=== PATIENT | female | born 1980 | race Caucasian/White ===

== ENCOUNTER 2016-06-22 16:03 | Emergency (ER) | payer OTHER ==
[~2016-06-22] VITALS: Ht 157.5 cm; Wt 77.2 kg
[~2016-06-22 16:03] MED LIST: ATARAX,VISTARIL25 MG PO; ATIVAN1 MG PO; ATIVAN2 MG PO; BUSPAR5 MG PO; CLONIDINE HCL0.1 MG PO; DESYREL100 MG PO; ELIMITE 5% CREA60 GM TP; FLEXERIL10 MG PO; LIBRIUM25 MG PO; MULTI COMPLETE1 EACH PO; NAPROSYN500 MG PO; PAROXETINE HCL20 MG PO; PAXIL20 MG PO; PAXIL30 MG PO; RENATABS TABLE1 EACH PO; THIAMINE HCL100 MG PO; VISTARIL25 MG PO
[2016-06-23] LABS: HEMATOCRIT 39.5 % (36.0-46.0); MCH 30.1 PG (29.0-34.0); MCHC 34.2 G/DL (30.0-36.0); MEAN PLAT.VOLUME 9.6 uM^3 (9.5-12.4); PLATELET COUNT 345 K/uL (156-360); RBC DIS.WIDTH-SD 38.1 % (39-53); RED BLOOD COUNT 4.49 M/uL (3.80-5.20); WHITE BLOOD COUNT 7.5 K/uL (4.1-10.2)
[2016-06-23 00:11] LABS: CHLORIDE 108 mEq/L (99-109); POTASSIUM 3.5 mEq/L (3.7-5.4); SODIUM 144 mEq/L (136-147)
[2016-06-23 00:14] LABS: GLUCOSE 101 mg/dL (70-99)
[2016-06-23 00:15] LABS: ANION GAP 14 MEQ/L (2-14); TOTAL BILIRUBIN 0.4 mg/dL (0.0-1.0)
[2016-06-23 00:16] LABS: SERUM ETHYL ALCOHOL 50 mg/dL
[2016-06-23 00:17] LABS: ALKALINE PHOSPHATASE 97 IU/L (3-129); GFR ESTIMATE (CALCULATED) > 59 mL/min/
[2016-06-23 00:18] LABS: UREA NITROGEN (BUN) 4 mg/dL (9-23)
[2016-06-23 00:21] LABS: LIPASE 38 U/L (1.0-51.0)
[2016-06-23 00:28] LABS: QUANTITATIVE HCG < 4.0 MIU/ML
[2016-06-23] MEDS ORDERED: TRAZODONE HCL100 MG PO (08:08)
[2016-06-23 09:48] LABS: ADD MIUA? YES; BILIRUBIN SMALL; BLOOD MODERATE; COLOR DK YELLOW ((YELLOW)); GLUCOSE (STRIP) NEGATIVE; KETONES 15; LEUKOCYTES LARGE; NITRITE NEGATIVE; PROTEIN (STRIP) 30; SPECIFIC GRAVITY 1.023 (1.000-1.030); UROBILINOGEN 0.2 MG/DL (0.2-1.0)
[2016-06-23 10:20] LABS: BACTERIA 1+; CASTS NONE SEEN /LPF; CRYSTALS NONE SEEN; EPITHELIAL CELLS 1+; MUCUS 3+; RED BLOOD CELLS 0-5 /HPF (0-5); UCUL ADDED? NO
[2016-06-23 10:41] LABS: INFLUENZA A VIRAL ANTIGEN NEGATIVE; INFLUENZA B VIRAL ANTIGEN NEGATIVE
[2016-06-23] MEDS ORDERED: ATARAX,VISTARIL25 MG PO (11:06)
[2016-06-23] MEDS ORDERED: MACROBID100 MG PO (11:06)
[2016-06-23 11:14] VITALS: BP 145/73
== END 2016-06-23 11:30 | disposition home or self-care (01) ==
LOC: EME 16:03
PROVIDERS: Emergency Medicine; Nurse Practitioner Family
DX: N39.0 Urinary tract infection, site not specified (principal); F41.9 Anxiety disorder, unspecified; F10.129 Alcohol abuse with intoxication, unspecified; Y90.2 Blood alcohol level of 40-59 mg/100 ml; M79.1 Myalgia; F17.210 Nicotine dependence, cigarettes, uncomplicated
CPT/HCPCS: 80053; 81003; 83690; 84702; 85027; 87502; 93005; 99281; 99284; G0480; Q0177

== ENCOUNTER 2016-08-12 09:03 | Emergency (ER) | payer OTHER ==
[~2016-08-12] VITALS: Ht 157.5 cm; Wt 71.4 kg
[~2016-08-12 09:03] MED LIST changes: +MACROBID100 MG PO; +TRAZODONE HCL100 MG PO
[2016-08-12] MEDS ORDERED: ZOFRAN ODT4 MG PO (09:52)
[2016-08-12 10:22] VITALS: BP 153/103
== END 2016-08-12 10:23 | disposition home or self-care (01) ==
LOC: EME → EDBD 09:03 → EME 10:23
DX: K52.9 Noninfective gastroenteritis and colitis, unspecified (principal); F41.9 Anxiety disorder, unspecified; F17.200 Nicotine dependence, unspecified, uncomplicated
CPT/HCPCS: 99281; 99284; J2060; J2405; J7030

== ENCOUNTER 2016-08-14 08:01 | Observation (INO) | payer OTHER ==
[~2016-08-14] VITALS: Ht 157.5 cm; Wt 73.1 kg
[~2016-08-14 08:01] MED LIST changes: +ZOFRAN ODT4 MG PO
[2016-08-14 08:46] LABS: EOSINOPHIL (%) 0.1 % (0-5); HEMATOCRIT 38.5 % (36.0-46.0); IMMATURE GRANULOCYTE (%) 0.4 % (0.0-0.7); IMMATURE GRANULOCYTE COUNT 0.4 K/uL; LYMPHOCYTE COUNT 2.1 K/uL (1.0-2.8); MCH 29.6 PG (29.0-34.0); MCHC 35.1 G/DL (30.0-36.0); MCV 84.4 FL (83-99); MEAN PLAT.VOLUME 9.5 uM^3 (9.5-12.4); MONOCYTE (%) 4.6 % (3-12); MONOCYTE COUNT 0.4 K/uL (0-0.8); NEUTROPHIL COUNT 6.5 K/uL (1.8-6.4); PLATELET COUNT 285 K/uL (156-360); RBC DIS.WIDTH-CV 14.5 % (11.8-14.6); RBC DIS.WIDTH-SD 42.5 % (39-53); RED BLOOD COUNT 4.56 M/uL (3.80-5.20); WHITE BLOOD COUNT 9.1 K/uL (4.1-10.2)
[2016-08-14 08:58] LABS: CHLORIDE 101 mEq/L (99-109); POTASSIUM 2.8 mEq/L (3.7-5.4); SODIUM 138 mEq/L (136-147)
[2016-08-14 09:00] LABS: GLUCOSE 144 mg/dL (70-99)
[2016-08-14 09:01] LABS: ANION GAP 13 MEQ/L (2-14)
[2016-08-14 09:02] LABS: TOTAL BILIRUBIN 0.3 mg/dL (0.0-1.0)
[2016-08-14 09:03] LABS: ALKALINE PHOSPHATASE 66 IU/L (3-129)
[2016-08-14 09:04] LABS: GFR ESTIMATE (CALCULATED) > 59 mL/min/
[2016-08-14 09:05] LABS: UREA NITROGEN (BUN) 9 mg/dL (9-23)
[2016-08-14 09:12] LABS: QUANTITATIVE HCG < 4.0 MIU/ML
[2016-08-14] MEDS ORDERED: PAXIL40 MG PO (11:59)
[2016-08-14 13:05] LABS: AMYLASE 97 IU/L (1-118)
[2016-08-14 13:11] LABS: SERUM ETHYL ALCOHOL < 10 mg/dL
[2016-08-14 13:14] LABS: LIPASE 113 U/L (1.0-51.0)
[2016-08-14 13:55] VITALS: BP 165/95
[2016-08-14 13:56] LABS: ADD MIUA? YES; BILIRUBIN NEGATIVE; BLOOD SMALL; COLOR YELLOW ((YELLOW)); GLUCOSE (STRIP) NEGATIVE; KETONES 5; LEUKOCYTES TRACE; NITRITE NEGATIVE; PROTEIN (STRIP) 100; SPECIFIC GRAVITY 1.018 (1.000-1.030)
[2016-08-14 14:15] LABS: BACTERIA 2+ /HPF; EPITHELIAL CELLS 2+ /HPF; MUCUS 3+ /LPF; RED BLOOD CELLS 0-5 /HPF (0-5); UCUL ADDED? NO; WHITE BLOOD CELLS 0-5 /HPF (0-5)
[2016-08-14 16:57] LABS: AMPHETAMINES QUANT VALUE 0 NG/ML; BARBITUATES QUANT VALUE 0 NG/ML; BENZODIAZEPINES, URINE SCREEN POSITIVE (200 ng/mL); MARIJUANA QUANT VALUE 0 NG/ML; OPIATES QUANTITATIVE VALUE 0 NG/ML; PHENCYCLIDINE QUANT VALUE 0 NG/ML
[2016-08-14 19:48] LABS: ANION GAP 11 MEQ/L (2-14); CHLORIDE 102 MEQ/L (99-109); GFR ESTIMATE (CALCULATED) > 59 mL/min/; GLUCOSE 105 mg/dL (70-99); SAMPLE HEMOLYSIS CHECK 0; SAMPLE ICTERIC CHECK 0; SAMPLE LIPEMIA CHECK 0; SODIUM 136 MEQ/L (136-147); UREA NITROGEN (BUN) 8 mg/dL (9-23)
[2016-08-14 20:00] VITALS: BP 175/104
[2016-08-14 23:38] VITALS: BP 171/101
[2016-08-15 03:53] VITALS: BP 174/84
[2016-08-15 05:22] LABS: POINT-OF-CARE METER ID UU13113831
[2016-08-15 07:27] LABS: ALKALINE PHOSPHATASE 54 IU/L (3-129); ANION GAP 13 MEQ/L (2-14); CHLORIDE 103 MEQ/L (99-109); GFR ESTIMATE (CALCULATED) > 59 mL/min/; GLUCOSE 93 mg/dL (70-99); POTASSIUM 3.2 MEQ/L (3.7-5.4); SAMPLE HEMOLYSIS CHECK 0; SAMPLE ICTERIC CHECK 0; SAMPLE LIPEMIA CHECK 0; SODIUM 138 MEQ/L (136-147); TOTAL BILIRUBIN 0.8 MG/DL (0.0-1.0); UREA NITROGEN (BUN) 4 mg/dL (9-23)
[2016-08-15 07:28] LABS: HEMATOCRIT 39.8 % (36.0-46.0); MCH 28.6 PG (29.0-34.0); MCHC 33.2 G/DL (30.0-36.0); MCV 86.3 FL (83-99); MEAN PLAT.VOLUME 10.6 uM^3 (9.5-12.4); PLATELET COUNT 288 K/uL (156-360); RBC DIS.WIDTH-CV 14.7 % (11.8-14.6); RBC DIS.WIDTH-SD 44.4 % (39-53); RED BLOOD COUNT 4.61 M/uL (3.80-5.20)
[2016-08-15 07:38] LABS: WHITE BLOOD COUNT 15.3 K/uL (4.1-10.2)
[2016-08-15 07:48] LABS: Estimated Average Glucose 94 mg/dL (70-123); HEMOGLOBIN A1c (GLYCOHEMOGLOB) 4.9 % HGB (Below 5.7)
[2016-08-15 08:40] VITALS: BP 143/72
[2016-08-15 11:35] VITALS: BP 158/88
[2016-08-15 16:05] VITALS: BP 173/104
[2016-08-15] MEDS ORDERED: CIPROFLOXACIN500 M1 PO (16:34)
== END 2016-08-15 17:37 | disposition home or self-care (01) ==
LOC: EME 08:01 → EDOF 12:16 → 5WEST 12:16 → EDOF 12:16 → 5WEST 13:52
PROVIDERS: Emergency Medicine; Internal Medicine
DX: N39.0 Urinary tract infection, site not specified (principal); R11.2 Nausea with vomiting, unspecified; R19.7 Diarrhea, unspecified; E87.6 Hypokalemia; F10.220 Alcohol dependence with intoxication, uncomplicated; F10.230 Alcohol dependence with withdrawal, uncomplicated; F13.10 Sedative, hypnotic or anxiolytic abuse, uncomplicated; F43.10 Post-traumatic stress disorder, unspecified; F41.1 Generalized anxiety disorder; F32.9 Major depressive disorder, single episode, unspecified; F17.200 Nicotine dependence, unspecified, uncomplicated; R73.9 Hyperglycemia, unspecified
CPT/HCPCS: 74176; 80048 91; 80053; 80306 90; 81003; 82150; 82948; 83036; 83690; 84702; 85025; 85027; 99281; 99285; G0378; G0480; J1885; J2060; J2270; J2405; J2765; J3411; J3475; J3480; J7030; S0028

== ENCOUNTER 2016-08-22 08:31 | Inpatient (IN) | payer OTHER ==
[~2016-08-22] VITALS: Ht 157.5 cm; Wt 72.3 kg
[~2016-08-22 08:31] MED LIST changes: +CIPROFLOXACIN500 M1 PO; +PAXIL40 MG PO
[2016-08-22 09:16] LABS: EOSINOPHIL (%) 0 % (0-5); HEMATOCRIT 38.8 % (36.0-46.0); IMMATURE GRANULOCYTE (%) 0.1 % (0.0-0.7); IMMATURE GRANULOCYTE COUNT 0.1 K/uL; LYMPHOCYTE COUNT 1.7 K/uL (1.0-2.8); MCH 29.2 PG (29.0-34.0); MCV 85.8 FL (83-99); MEAN PLAT.VOLUME 10.1 uM^3 (9.5-12.4); MONOCYTE COUNT 0.4 K/uL (0-0.8); NEUTROPHIL (%) 73.3 % (45-76); NEUTROPHIL COUNT 5.7 K/uL (1.8-6.4); PLATELET COUNT 366 K/uL (156-360); RBC DIS.WIDTH-CV 14.6 % (11.8-14.6); RBC DIS.WIDTH-SD 45.1 % (39-53); RED BLOOD COUNT 4.52 M/uL (3.80-5.20); WHITE BLOOD COUNT 7.8 K/uL (4.1-10.2)
[2016-08-22 09:27] LABS: CHLORIDE 99 mEq/L (99-109); POTASSIUM 3.7 mEq/L (3.7-5.4); SODIUM 139 mEq/L (136-147)
[2016-08-22 09:29] LABS: GLUCOSE 115 mg/dL (70-99)
[2016-08-22 09:30] LABS: ANION GAP 19 MEQ/L (2-14)
[2016-08-22 09:32] LABS: SERUM ETHYL ALCOHOL < 10 mg/dL
[2016-08-22 09:33] LABS: GFR ESTIMATE (CALCULATED) > 59 mL/min/; UREA NITROGEN (BUN) 5 mg/dL (9-23)
[2016-08-22 09:43] LABS: QUANTITATIVE HCG < 4.0 MIU/ML
[2016-08-22 12:10] LABS: ADD MIUA? NO; BILIRUBIN NEGATIVE; BLOOD NEGATIVE; COLOR YELLOW ((YELLOW)); GLUCOSE (STRIP) NEGATIVE; KETONES 80; LEUKOCYTES NEGATIVE; NITRITE NEGATIVE; PROTEIN (STRIP) 30; SPECIFIC GRAVITY 1.018 (1.000-1.030); UROBILINOGEN 0.2 MG/DL (0.2-1.0)
[2016-08-22 12:19] LABS: AMPHETAMINE NEGATIVE (500 ng/mL); BARBITURATES NEGATIVE (200 ng/mL); BENZODIAZEPINES PRESUMPTIVE POSITIVE (150 ng/mL); COCAINE PRESUMPTIVE POSITIVE (150 ng/mL); INTERNAL CONTROLS VALID? YES; METHADONE NEGATIVE (200 ng/mL); METHAMPHETAMINE NEGATIVE (500 ng/mL); OPIATES (MORPHINE) NEGATIVE (100 ng/mL); OXYCODONE NEGATIVE (100 ng/mL); PHENCYCLIDINE NEGATIVE (25 ng/mL); PROPOXYPHENE NEGATIVE (300 ng/mL); THC CANNABINOIDS NEGATIVE (50 ng/mL); TRICYCLIC ANTIDEPRESSANTS PRESUMPTIVE POSITIVE (300 ng/mL)
[2016-08-22 12:20] LABS: ADD MEDTOX COMMENT Y
[2016-08-22 13:13] LABS: BENZODIAZEPINES, URINE SCREEN POSITIVE (200 ng/mL)
[2016-08-22] MEDS ORDERED: HYDROXYZINE PAM25 MG PO (15:15)
[2016-08-22] MEDS ORDERED: QUETIAPINE FUMA50 MG PO (15:17)
[2016-08-22] MEDS ORDERED: DAILY VALUE1 EACH PO (15:18)
[2016-08-22] MEDS ORDERED: TYLENOL EXTRA500 MG PO (15:19)
[2016-08-22] MEDS ORDERED: CIPROFLOXACIN500 M1 PO (16:06)
[2016-08-22 18:11] VITALS: BP 182/103
[2016-08-22 18:14] VITALS: BP 185/103
[2016-08-22 20:27] VITALS: BP 177/94
[2016-08-23 08:07] VITALS: BP 191/111
[2016-08-23 12:06] VITALS: BP 160/85
[2016-08-23 15:57] VITALS: BP 119/80
[2016-08-23 20:58] VITALS: BP 106/69
[2016-08-24 05:32] VITALS: BP 93/63
[2016-08-24 07:54] VITALS: BP 97/55
[2016-08-24 10:20] LABS: GLUCOSE 160 mg/dL (70-99)
[2016-08-24 10:29] LABS: Estimated Average Glucose 85 mg/dL (70-123); HEMOGLOBIN A1c (GLYCOHEMOGLOB) 4.6 % HGB (Below 5.7)
[2016-08-24 15:30] VITALS: BP 124/60
[2016-08-25 09:45] VITALS: BP 104/60
[2016-09-08] MEDS ORDERED: SEROQUEL12.5 MG PO (18:21)
[2016-09-08] MEDS ORDERED: PAXIL30 MG PO (18:21)
== END 2016-08-25 12:00 | disposition home or self-care (01) | DRG 881 ==
LOC: EME → EDBD 08:31 → EDOF 15:37 → 1WEST 15:37
PROVIDERS: Emergency Medicine; Nurse Practitioner Family
PROC: HZ2ZZZZ Detoxification Services for Substance Abuse Treatment (ICD-10-PCS; principal; 2016-08-22)
DX: F43.21 Adjustment disorder with depressed mood (principal); F10.239 Alcohol dependence with withdrawal, unspecified; R45.851 Suicidal ideations; F14.90 Cocaine use, unspecified, uncomplicated; F15.90 Other stimulant use, unspecified, uncomplicated; F13.90 Sedative, hypnotic, or anxiolytic use, unspecified, uncomplicated; G47.00 Insomnia, unspecified; Z88.0 Allergy status to penicillin; Z88.6 Allergy status to analgesic agent; Z88.3 Allergy status to other anti-infective agents; Z81.1 Family history of alcohol abuse and dependence; Z81.4 Family history of other substance abuse and dependence; Z59.0 Homelessness; Z56.0 Unemployment, unspecified
CPT/HCPCS: 80048; 81003; 82947; 83036; 84702; 84999; 85025; 90839; 97150 GO; 97166 GO; 99281; 99285; G0480; J1885; J2060; J2405; J7030; Q0177

== ENCOUNTER 2016-09-01 19:20 | Emergency (ER) | payer OTHER ==
[~2016-09-01] VITALS: Ht 162.6 cm; Wt 72.1 kg
[~2016-09-01 19:20] MED LIST changes: +DAILY VALUE1 EACH PO; +HYDROXYZINE PAM25 MG PO; +QUETIAPINE FUMA50 MG PO; +TYLENOL EXTRA500 MG PO
[2016-09-01 19:56] LABS: HEMATOCRIT 37.5 % (36.0-46.0); MCH 29.4 PG (29.0-34.0); MCHC 33.6 G/DL (30.0-36.0); MCV 87.6 FL (83-99); MEAN PLAT.VOLUME 9.7 uM^3 (9.5-12.4); PLATELET COUNT 383 K/uL (156-360); RBC DIS.WIDTH-CV 14.4 % (11.8-14.6); RBC DIS.WIDTH-SD 45.8 % (39-53); RED BLOOD COUNT 4.28 M/uL (3.80-5.20)
[2016-09-01 20:04] LABS: CHLORIDE 110 mEq/L (99-109); POTASSIUM 3.6 mEq/L (3.7-5.4); SODIUM 145 mEq/L (136-147)
[2016-09-01 20:06] LABS: GLUCOSE 98 mg/dL (70-99)
[2016-09-01 20:07] LABS: ANION GAP 13 MEQ/L (2-14)
[2016-09-01 20:08] LABS: TOTAL BILIRUBIN 0.1 mg/dL (0.0-1.0)
[2016-09-01 20:09] LABS: SERUM ETHYL ALCOHOL 329 mg/dL
[2016-09-01 20:10] LABS: ALKALINE PHOSPHATASE 63 IU/L (3-129); GFR ESTIMATE (CALCULATED) > 59 mL/min/
[2016-09-01 20:11] LABS: UREA NITROGEN (BUN) 7 mg/dL (9-23)
[2016-09-01 20:45] LABS: ADD MEDTOX COMMENT Y; AMPHETAMINE NEGATIVE (500 ng/mL); BARBITURATES NEGATIVE (200 ng/mL); BENZODIAZEPINES PRESUMPTIVE POSITIVE (150 ng/mL); COCAINE NEGATIVE (150 ng/mL); INTERNAL CONTROLS VALID? YES; METHADONE NEGATIVE (200 ng/mL); METHAMPHETAMINE NEGATIVE (500 ng/mL); OPIATES (MORPHINE) NEGATIVE (100 ng/mL); OXYCODONE PRESUMPTIVE POSITIVE (100 ng/mL); PHENCYCLIDINE NEGATIVE (25 ng/mL); PROPOXYPHENE NEGATIVE (300 ng/mL); THC CANNABINOIDS NEGATIVE (50 ng/mL); TRICYCLIC ANTIDEPRESSANTS NEGATIVE (300 ng/mL)
[2016-09-01 20:46] LABS: ADD MIUA? YES; BILIRUBIN NEGATIVE; BLOOD NEGATIVE; COLOR YELLOW ((YELLOW)); GLUCOSE (STRIP) NEGATIVE; KETONES NEGATIVE; LEUKOCYTES SMALL; NITRITE NEGATIVE; PROTEIN (STRIP) NEGATIVE; SPECIFIC GRAVITY 1.017 (1.000-1.030); UROBILINOGEN 0.2 MG/DL (0.2-1.0)
[2016-09-01 20:55] LABS: BACTERIA NONE SEEN /HPF; EPITHELIAL CELLS 1+ /HPF; HYALINE CASTS 0-5 /LPF; MUCUS NONE SEEN /LPF; RED BLOOD CELLS 0-5 /HPF (0-5); WHITE BLOOD CELLS 0-5 /HPF (0-5)
[2016-09-01 21:11] VITALS: BP 114/58
[2016-09-01 21:22] LABS: BENZODIAZEPINES, URINE SCREEN POSITIVE (200 ng/mL)
[2016-09-08] MEDS ORDERED: PAXIL30 MG PO (18:21)
[2016-09-08] MEDS ORDERED: SEROQUEL12.5 MG PO (18:21)
== END 2016-09-01 21:19 | disposition home or self-care (01) ==
LOC: EME → EDBD 19:20 → EME 21:19
PROVIDERS: Emergency Medicine
DX: F41.9 Anxiety disorder, unspecified (principal); F10.129 Alcohol abuse with intoxication, unspecified; F17.200 Nicotine dependence, unspecified, uncomplicated
CPT/HCPCS: 80053; 81003; 84999; 85027; 99281; 99284; G0480

== ENCOUNTER → 2016-09-08 | Emergency (ER) | payer OTHER ==
[~2016-09-08] VITALS: Ht 157.5 cm; Wt 70.9 kg
[~2016-09-08] MED LIST changes: +ERYTHROMYC1 APPLICAT RIGHT EYE; +SEROQUEL12.5 MG PO
[2016-09-08 18:37] VITALS: BP 138/83
== END | disposition home or self-care (01) ==
LOC: EME → EDBD 17:31
DX: F41.9 Anxiety disorder, unspecified (principal); F10.129 Alcohol abuse with intoxication, unspecified; F17.200 Nicotine dependence, unspecified, uncomplicated
CPT/HCPCS: 99281; 99283; Q0177

== ENCOUNTER 2016-09-09 23:22 | Emergency (ER) | payer OTHER ==
[~2016-09-09] VITALS: Ht 157.5 cm; Wt 69.3 kg
[~2016-09-09 23:22] MED LIST changes: -ERYTHROMYC1 APPLICAT RIGHT EYE
[2016-09-09] MEDS ORDERED: LIBRIUM25 MG PO (23:50)
[2016-09-09] MEDS ORDERED: ERYTHROMYC1 APPLICAT RIGHT EYE (23:51)
[2016-09-10 00:25] VITALS: BP 133/97
[2016-09-10 00:29] LABS: POINT-OF-CARE METER ID UU13113702
== END 2016-09-10 00:27 | disposition home or self-care (01) ==
LOC: EME 23:22
PROVIDERS: Emergency Medicine
DX: F10.129 Alcohol abuse with intoxication, unspecified (principal); H10.9 Unspecified conjunctivitis; F17.200 Nicotine dependence, unspecified, uncomplicated
CPT/HCPCS: 82948; 99281; 99283

== ENCOUNTER 2016-10-13 23:05 | Emergency (ER) | payer OTHER ==
[~2016-10-13] VITALS: Ht 157.5 cm; Wt 70.4 kg
[~2016-10-13 23:05] MED LIST changes: +ERYTHROMYC1 APPLICAT RIGHT EYE
[2016-10-13 23:53] LABS: HEMATOCRIT 40.6 % (36.0-46.0); MEAN PLAT.VOLUME 9.9 uM^3 (9.5-12.4); PLATELET COUNT 229 K/uL (156-360); RBC DIS.WIDTH-CV 14.6 % (11.8-14.6); RED BLOOD COUNT 4.32 M/uL (3.80-5.20)
[2016-10-14 00:03] LABS: CHLORIDE 108 mEq/L (99-109); POTASSIUM 3.5 mEq/L (3.7-5.4); SODIUM 146 mEq/L (136-147)
[2016-10-14 00:05] LABS: GLUCOSE 108 mg/dL (70-99)
[2016-10-14 00:06] LABS: ANION GAP 17 MEQ/L (2-14)
[2016-10-14 00:08] LABS: SERUM ETHYL ALCOHOL 471 mg/dL
[2016-10-14 00:09] LABS: GFR ESTIMATE (CALCULATED) > 59 mL/min/
[2016-10-14 00:10] LABS: UREA NITROGEN (BUN) 8 mg/dL (9-23)
[2016-10-14 00:12] LABS: SALICYLATE < 5.0 MG/DL (15-30)
[2016-10-14 00:19] LABS: QUANTITATIVE HCG < 4.0 MIU/ML
[2016-10-14 01:28] LABS: TOTAL BILIRUBIN 0.2 mg/dL (0.0-1.0)
[2016-10-14 01:29] LABS: ALKALINE PHOSPHATASE 48 IU/L (3-129)
[2016-10-14 06:25] VITALS: BP 147/95
== END 2016-10-14 06:41 | disposition home or self-care (01) ==
LOC: EME → EDBD 23:05 → EME 23:05
PROVIDERS: Emergency Medicine
DX: F10.229 Alcohol dependence with intoxication, unspecified (principal); F41.9 Anxiety disorder, unspecified; F43.9 Reaction to severe stress, unspecified; E86.0 Dehydration; Y90.8 Blood alcohol level of 240 mg/100 ml or more; F17.200 Nicotine dependence, unspecified, uncomplicated
CPT/HCPCS: 80048; 80053; 84702; 85027; 99281; 99284; G0480; J3411; J7030

== ENCOUNTER 2016-10-16 08:00 | Inpatient (IN) | payer OTHER ==
[~2016-10-16] VITALS: Ht 157.5 cm; Wt 70.2 kg
[2016-10-16 09:10] LABS: SODIUM 140 mEq/L (136-147)
[2016-10-16 09:13] LABS: GLUCOSE 87 mg/dL (70-99)
[2016-10-16 09:14] LABS: ANION GAP 27 MEQ/L (2-14)
[2016-10-16 09:16] LABS: ALKALINE PHOSPHATASE 49 IU/L (3-129); CHLORIDE 95 mEq/L (99-109); POTASSIUM 4.3 mEq/L (3.7-5.4); SERUM ETHYL ALCOHOL 145 mg/dL; TOTAL BILIRUBIN 0.8 mg/dL (0.0-1.0)
[2016-10-16 09:17] LABS: UREA NITROGEN (BUN) 9 mg/dL (9-23)
[2016-10-16 09:35] LABS: HEMATOCRIT 41.1 % (36.0-46.0); MCH 31.4 PG (29.0-34.0); MCHC 33.6 G/DL (30.0-36.0); MCV 93.6 FL (83-99); MEAN PLAT.VOLUME 10.8 uM^3 (9.5-12.4); PLATELET COUNT 186 K/uL (156-360); RBC DIS.WIDTH-CV 14.3 % (11.8-14.6); RBC DIS.WIDTH-SD 49.4 % (39-53); RED BLOOD COUNT 4.39 M/uL (3.80-5.20); WHITE BLOOD COUNT 5.1 K/uL (4.1-10.2)
[2016-10-16 09:48] LABS: GFR ESTIMATE (CALCULATED) > 59 mL/min/
[2016-10-16 11:35] LABS: ADD MEDTOX COMMENT Y; AMPHETAMINE NEGATIVE (500 ng/mL); BARBITURATES NEGATIVE (200 ng/mL); BENZODIAZEPINES PRESUMPTIVE POSITIVE (150 ng/mL); COCAINE NEGATIVE (150 ng/mL); INTERNAL CONTROLS VALID? YES; METHADONE NEGATIVE (200 ng/mL); METHAMPHETAMINE NEGATIVE (500 ng/mL); OPIATES (MORPHINE) NEGATIVE (100 ng/mL); OXYCODONE NEGATIVE (100 ng/mL); PHENCYCLIDINE NEGATIVE (25 ng/mL); PROPOXYPHENE NEGATIVE (300 ng/mL); THC CANNABINOIDS NEGATIVE (50 ng/mL); TRICYCLIC ANTIDEPRESSANTS NEGATIVE (300 ng/mL)
[2016-10-16] MEDS ORDERED: BENADRYL25 MG PO (11:47)
[2016-10-16] MEDS ORDERED: QUETIAPINE FUMA25 MG PO (11:47)
[2016-10-16] MEDS ORDERED: ZOFRAN4 MG PO (11:48)
[2016-10-16] MEDS ORDERED: HYDROXYZINE HCL25 MG PO (11:49)
[2016-10-16] MEDS ORDERED: CLONAZEPAM0.5 MG PO (11:50)
[2016-10-16 12:40] LABS: AMYLASE 85 IU/L (1-118)
[2016-10-16 12:49] LABS: LIPASE 8 U/L (1.0-51.0)
[2016-10-16 14:14] LABS: MAGNESIUM 1.9 mg/dL (1.3-2.7)
[2016-10-16 15:15] VITALS: BP 160/93
[2016-10-16 15:33] VITALS: BP 160/93
[2016-10-16 19:49] VITALS: BP 176/98
[2016-10-16 19:51] LABS: BENZODIAZEPINES QUANT VALUE 0 NG/ML
[2016-10-16 19:59] LABS: BENZODIAZEPINES, URINE SCREEN Negative (200 ng/mL)
[2016-10-16 23:44] VITALS: BP 189/108
[2016-10-17 01:00] VITALS: BP 152/79
[2016-10-17 04:09] VITALS: BP 139/84
[2016-10-17 07:49] VITALS: BP 133/74
[2016-10-17 11:11] VITALS: BP 131/78
[2016-10-17 15:47] VITALS: BP 133/82
[2016-10-17 19:42] VITALS: BP 142/82
[2016-10-18 00:08] VITALS: BP 111/71
[2016-10-18 06:33] LABS: ALKALINE PHOSPHATASE 34 IU/L (3-129); DIRECT BILIRUBIN 0.2 mg/dL (0.0-0.3); TOTAL BILIRUBIN 0.9 MG/DL (0.0-1.0)
[2016-10-18 08:31] VITALS: BP 140/85
[2016-10-18 12:10] VITALS: BP 142/81
[2016-10-18 16:16] VITALS: BP 156/88
[2016-10-18 19:40] VITALS: BP 143/81
[2016-10-19 00:05] VITALS: BP 144/72
[2016-10-19 07:30] VITALS: BP 143/87
[2016-10-19 10:45] VITALS: BP 130/74
[2016-10-19 15:05] VITALS: BP 152/82
[2016-10-19 20:13] VITALS: BP 163/91
[2016-10-20 01:42] VITALS: BP 134/83
[2016-10-20 08:00] VITALS: BP 142/92
[2016-10-20 12:00] VITALS: BP 131/70
[2016-10-20] MEDS ORDERED: QUETIAPINE FUMA25 MG PO (13:24)
== END 2016-10-20 14:23 | disposition home or self-care (01) | DRG 897 ==
LOC: EME 08:00 → 5SOUTH 12:58 → EDOF 12:58 → 5SOUTH 14:38
PROVIDERS: Nurse Practitioner Adult Health; Nurse Practitioner Family
PROC: HZ2ZZZZ Detoxification Services for Substance Abuse Treatment (ICD-10-PCS; principal; 2016-10-16)
DX: F10.239 Alcohol dependence with withdrawal, unspecified (principal); E87.2 Acidosis; F13.20 Sedative, hypnotic or anxiolytic dependence, uncomplicated; F33.9 Major depressive disorder, recurrent, unspecified; F41.9 Anxiety disorder, unspecified; Z91.14 Patient's other noncompliance with medication regimen; G89.29 Other chronic pain; F17.210 Nicotine dependence, cigarettes, uncomplicated; F43.10 Post-traumatic stress disorder, unspecified; Z59.0 Homelessness; Z56.0 Unemployment, unspecified
CPT/HCPCS: 71020; 80048; 80053; 80076; 82150; 83690; 83735; 84702; 84999; 85027; 93005; 99281; 99284; 99285; C9113; G0480; J1650; J2060; J2405; J3411; J7030; J7120; S0028

== ENCOUNTER 2016-11-03 14:32 | Emergency (ER) | payer OTHER ==
[~2016-11-03] VITALS: Ht 157.5 cm; Wt 70.9 kg
[~2016-11-03 14:32] MED LIST changes: +BENADRYL25 MG PO; +CLONAZEPAM0.5 MG PO; +HYDROXYZINE HCL25 MG PO; +QUETIAPINE FUMA25 MG PO; +ZOFRAN4 MG PO
[2016-11-03 14:34] VITALS: BP 150/106
== END 2016-11-03 17:30 | disposition left against medical advice (07) ==
LOC: EXP 14:32 → EME 14:32 → EXP 17:30
DX: Z76.0 Encounter for issue of repeat prescription (principal); Z53.21 Procedure and treatment not carried out due to patient leaving prior to being seen by health care provider
CPT/HCPCS: 99281; 99283

== ENCOUNTER 2016-11-09 18:30 | Inpatient (IN) | payer OTHER ==
[~2016-11-09] VITALS: Ht 165.1 cm; Wt 71.0 kg
[2016-11-09 21:20] LABS: BASOPHIL COUNT 0.1 K/uL (0-0.1); EOSINOPHIL (%) 0 % (0-5); HEMATOCRIT 36.9 % (36.0-46.0); IMMATURE GRANULOCYTE (%) 0.6 % (0.0-0.7); IMMATURE GRANULOCYTE COUNT 0.1 K/uL; INSTRUMENT ABS NEUTROPHIL CT 17.8 K/uL; LYMPHOCYTE COUNT 1.2 K/uL (1.0-2.8); MCH 31.9 PG (29.0-34.0); MCHC 33.9 G/DL (30.0-36.0); MCV 94.1 FL (83-99); MEAN PLAT.VOLUME 9.9 uM^3 (9.5-12.4); MONOCYTE (%) 5.7 % (3-12); MONOCYTE COUNT 1.2 K/uL (0-0.8); NEUTROPHIL (%) 87.7 % (45-76); NEUTROPHIL COUNT 17.8 K/uL (1.8-6.4); PLATELET COUNT 181 K/uL (156-360); RBC DIS.WIDTH-CV 13.3 % (11.8-14.6); RBC DIS.WIDTH-SD 46.2 % (39-53); RED BLOOD COUNT 3.92 M/uL (3.80-5.20)
[2016-11-09 21:21] LABS: WHITE BLOOD COUNT 20.3 K/uL (4.1-10.2)
[2016-11-09 21:22] LABS: CHLORIDE 103 mEq/L (99-109); POTASSIUM 3.3 mEq/L (3.7-5.4); SODIUM 136 mEq/L (136-147)
[2016-11-09 21:23] LABS: GLUCOSE 89 mg/dL (70-99)
[2016-11-09 21:25] LABS: ANION GAP 15 MEQ/L (2-14)
[2016-11-09 21:27] LABS: GFR ESTIMATE (CALCULATED) > 59 mL/min/
[2016-11-09 21:28] LABS: UREA NITROGEN (BUN) 6 mg/dL (9-23)
[2016-11-09 21:32] LABS: ADD MIUA? YES; BILIRUBIN NEGATIVE; BLOOD SMALL; COLOR YELLOW ((YELLOW)); GLUCOSE (STRIP) NEGATIVE; KETONES 5; LEUKOCYTES NEGATIVE; NITRITE NEGATIVE; PROTEIN (STRIP) 30; SPECIFIC GRAVITY 1.014 (1.000-1.030); UROBILINOGEN 0.2 MG/DL (0.2-1.0)
[2016-11-09 21:41] LABS: BACTERIA NONE SEEN /HPF; EPITHELIAL CELLS RARE /HPF; MUCUS TRACE /LPF; RED BLOOD CELLS 0-5 /HPF (0-5); UCUL ADDED? NO; WHITE BLOOD CELLS 0-5 /HPF (0-5)
[2016-11-10 01:23] LABS: INFLUENZA A VIRAL ANTIGEN NEGATIVE; INFLUENZA B VIRAL ANTIGEN NEGATIVE
[2016-11-10 03:40] VITALS: BP 130/67
[2016-11-10 06:28] LABS: HEMATOCRIT 34.2 % (36.0-46.0); MCH 33.5 PG (29.0-34.0); MCHC 35.4 G/DL (30.0-36.0); MCV 94.7 FL (83-99); MEAN PLAT.VOLUME 10.8 uM^3 (9.5-12.4); PLATELET COUNT 164 K/uL (156-360); RBC DIS.WIDTH-CV 13.3 % (11.8-14.6); RBC DIS.WIDTH-SD 46.5 % (39-53); RED BLOOD COUNT 3.61 M/uL (3.80-5.20); WHITE BLOOD COUNT 19.1 K/uL (4.1-10.2)
[2016-11-10 06:42] LABS: MAGNESIUM 1.1 mg/dL (1.3-2.7)
[2016-11-10 06:46] LABS: TOTAL BILIRUBIN 0.8 mg/dL (0.0-1.0)
[2016-11-10 06:47] LABS: ALKALINE PHOSPHATASE 47 IU/L (3-129); SERUM ETHYL ALCOHOL 175 mg/dL
[2016-11-10 06:50] LABS: DIRECT BILIRUBIN 0.3 mg/dL (0.0-0.3)
[2016-11-10 06:51] LABS: LIPASE 34 U/L (1.0-51.0)
[2016-11-10 06:51] LABS: ANION GAP 14 MEQ/L (2-14); CHLORIDE 99 MEQ/L (99-109); GFR ESTIMATE (CALCULATED) > 59 mL/min/; SAMPLE HEMOLYSIS CHECK 0; SAMPLE ICTERIC CHECK 0; SAMPLE LIPEMIA CHECK 0; SODIUM 137 MEQ/L (136-147); UREA NITROGEN (BUN) 5 mg/dL (9-23)
[2016-11-10 06:54] LABS: GLUCOSE 139 mg/dL (70-99)
[2016-11-10 07:16] LABS: EOSINOPHIL (%) 0.1 % (0-5); IMMATURE GRANULOCYTE (%) 0.8 % (0.0-0.7); IMMATURE GRANULOCYTE COUNT 0.2 K/uL; INSTRUMENT ABS NEUTROPHIL CT 16.8 K/uL; LYMPHOCYTE COUNT 1.3 K/uL (1.0-2.8); MONOCYTE (%) 4.6 % (3-12); MONOCYTE COUNT 0.9 K/uL (0-0.8); NEUTROPHIL (%) 87.7 % (45-76); NEUTROPHIL COUNT 16.8 K/uL (1.8-6.4)
[2016-11-10 12:05] VITALS: BP 127/81
[2016-11-10 19:39] VITALS: BP 143/83
[2016-11-10 23:33] VITALS: BP 134/84
[2016-11-11 07:12] VITALS: BP 125/62
[2016-11-11 07:56] LABS: EOSINOPHIL (%) 0.3 % (0-5); EOSINOPHIL COUNT 0.1 K/uL (0-0.3); HEMATOCRIT 35.3 % (36.0-46.0); IMMATURE GRANULOCYTE COUNT 0.2 K/uL; INSTRUMENT ABS NEUTROPHIL CT 12.5 K/uL; LYMPHOCYTE COUNT 1.3 K/uL (1.0-2.8); MCH 31.7 PG (29.0-34.0); MCHC 33.1 G/DL (30.0-36.0); MCV 95.7 FL (83-99); MEAN PLAT.VOLUME 10.7 uM^3 (9.5-12.4); MONOCYTE COUNT 0.6 K/uL (0-0.8); NEUTROPHIL (%) 85.8 % (45-76); NEUTROPHIL COUNT 12.5 K/uL (1.8-6.4); PLATELET COUNT 125 K/uL (156-360); RBC DIS.WIDTH-CV 13.2 % (11.8-14.6); RBC DIS.WIDTH-SD 46.7 % (39-53); RED BLOOD COUNT 3.69 M/uL (3.80-5.20); WHITE BLOOD COUNT 14.6 K/uL (4.1-10.2)
[2016-11-11 08:24] LABS: ALKALINE PHOSPHATASE 49 IU/L (3-129); ANION GAP 11 MEQ/L (2-14); CHLORIDE 103 MEQ/L (99-109); GFR ESTIMATE (CALCULATED) > 59 mL/min/; GLUCOSE 119 mg/dL (70-99); POTASSIUM 2.9 MEQ/L (3.7-5.4); SAMPLE HEMOLYSIS CHECK 0; SAMPLE ICTERIC CHECK 0; SAMPLE LIPEMIA CHECK 0; SODIUM 136 MEQ/L (136-147); TOTAL BILIRUBIN 0.8 MG/DL (0.0-1.0); UREA NITROGEN (BUN) 4 mg/dL (9-23)
[2016-11-11 12:36] LABS: C DIFF TOXIN NEGATIVE (NEGATIVE)
[2016-11-11 12:42] LABS: PROBE CHECK PASS; SPECIMEN PROCESSING CONTROL PASS
[2016-11-11 15:22] LABS: ADD MIUA? YES; BILIRUBIN NEGATIVE; BLOOD NEGATIVE; COLOR YELLOW ((YELLOW)); GLUCOSE (STRIP) NEGATIVE; KETONES NEGATIVE; LEUKOCYTES TRACE; NITRITE NEGATIVE; PROTEIN (STRIP) NEGATIVE; UROBILINOGEN 0.2 MG/DL (0.2-1.0)
[2016-11-11 15:31] LABS: BACTERIA NONE SEEN /HPF; EPITHELIAL CELLS RARE /HPF; MUCUS TRACE /LPF; RED BLOOD CELLS 0-5 /HPF (0-5); UCUL ADDED? NO; WHITE BLOOD CELLS 0-5 /HPF (0-5)
[2016-11-11 15:48] VITALS: BP 123/75
[2016-11-11 16:10] LABS: AMPHETAMINES QUANT VALUE 0 NG/ML; BARBITUATES QUANT VALUE 0 NG/ML; BENZODIAZEPINES, URINE SCREEN POSITIVE (200 ng/mL); MARIJUANA QUANT VALUE 0 NG/ML; PHENCYCLIDINE QUANT VALUE 0 NG/ML
[2016-11-11 20:20] VITALS: BP 118/60
[2016-11-11 23:30] VITALS: BP 122/70
[2016-11-12 04:02] VITALS: BP 128/69
[2016-11-12 07:47] LABS: MCH 33.2 PG (29.0-34.0); MCHC 34.3 G/DL (30.0-36.0); MCV 96.8 FL (83-99); MEAN PLAT.VOLUME 11.2 uM^3 (9.5-12.4); PLATELET COUNT 115 K/uL (156-360); RBC DIS.WIDTH-CV 12.8 % (11.8-14.6); RBC DIS.WIDTH-SD 45.4 % (39-53)
[2016-11-12 07:54] LABS: WHITE BLOOD COUNT 8.7 K/uL (4.1-10.2)
[2016-11-12 08:40] LABS: ANION GAP 10 MEQ/L (2-14); CHLORIDE 108 MEQ/L (99-109); GFR ESTIMATE (CALCULATED) > 59 mL/min/; POTASSIUM 3.1 MEQ/L (3.7-5.4); SAMPLE HEMOLYSIS CHECK 0; SAMPLE ICTERIC CHECK 0; SAMPLE LIPEMIA CHECK 0; SODIUM 138 MEQ/L (136-147); UREA NITROGEN (BUN) 3 mg/dL (9-23)
[2016-11-12 08:41] LABS: GLUCOSE 83 mg/dL (70-99); MAGNESIUM 1.2 mg/dl (1.3-2.7)
[2016-11-12 09:03] VITALS: BP 128/74
[2016-11-12 17:17] VITALS: BP 125/96
[2016-11-12 23:45] VITALS: BP 128/72
[2016-11-13 08:00] VITALS: BP 107/61
[2016-11-13 08:56] LABS: ANION GAP 9 MEQ/L (2-14); CHLORIDE 107 MEQ/L (99-109); GFR ESTIMATE (CALCULATED) > 59 mL/min/; GLUCOSE 93 mg/dL (70-99); MAGNESIUM 1.5 mg/dl (1.3-2.7); POTASSIUM 3.4 MEQ/L (3.7-5.4); SAMPLE HEMOLYSIS CHECK 0; SAMPLE ICTERIC CHECK 0; SAMPLE LIPEMIA CHECK 0; SODIUM 138 MEQ/L (136-147); UREA NITROGEN (BUN) 3 mg/dL (9-23)
[2016-11-13] MEDS ORDERED: THIAMINE HCL100 MG PO (10:12)
[2016-11-13] MEDS ORDERED: FOLIC ACID1 MG PO (10:12)
[2016-11-13] MEDS ORDERED: CLONAZEPAM0.5 MG PO (10:13)
[2016-11-13] MEDS ORDERED: CEFDINIR300 MG PO (10:13)
[2016-11-13] MEDS ORDERED: PAXIL40 MG PO (10:13)
[2016-11-13] MEDS ORDERED: TRAZODONE HCL100 MG PO (10:13)
[2016-11-13] MEDS ORDERED: METRONIDAZOLE500 MG PO (10:13)
[2016-11-13] MEDS ORDERED: QUETIAPINE FUMA25 MG PO (10:13)
[2016-11-13] MEDS ORDERED: ULTRAM50 MG PO (13:24)
== END 2016-11-13 13:28 | disposition home or self-care (01) | DRG 871 ==
LOC: EME → EDBD 18:30 → EDOF 11-10 01:45 → 3EAST 11-10 01:45
PROVIDERS: Emergency Medicine; Hospitalist; Internal Medicine; Physician Assistant; Physician Assistant Medical
DX: A41.9 Sepsis, unspecified organism (principal); J69.0 Pneumonitis due to inhalation of food and vomit; G92 Toxic encephalopathy; F10.239 Alcohol dependence with withdrawal, unspecified; B88.8 Other specified infestations; F10.229 Alcohol dependence with intoxication, unspecified; E87.2 Acidosis; F33.9 Major depressive disorder, recurrent, unspecified; Y90.6 Blood alcohol level of 120-199 mg/100 ml; K70.0 Alcoholic fatty liver; E87.6 Hypokalemia; F41.9 Anxiety disorder, unspecified; F43.12 Post-traumatic stress disorder, chronic; F17.210 Nicotine dependence, cigarettes, uncomplicated; E83.42 Hypomagnesemia; R23.8 Other skin changes; R16.0 Hepatomegaly, not elsewhere classified; R00.0 Tachycardia, unspecified; Z73.6 Limitation of activities due to disability; Z88.0 Allergy status to penicillin; Z88.3 Allergy status to other anti-infective agents; Z88.6 Allergy status to analgesic agent; Z88.5 Allergy status to narcotic agent
CPT/HCPCS: 70450; 71010; 71020; 74177; 80048; 80053; 80076; 80306 90; 81003; 82040; 83605; 83690; 83735; 85025; 85027; 87040; 87070; 87205; 87491; 87493; 87502; 87591; 87624; 87651 90; 94640; 94640 76; 99202; 99281; 99284; G0480; J1200; J1644; J1956; J2060; J2765; J3411; J3475; J3480; J7030; S0030

== ENCOUNTER 2016-12-12 13:16 | Inpatient (IN) | payer OTHER ==
[~2016-12-12] VITALS: Ht 157.5 cm; Wt 68.0 kg
[~2016-12-12 13:16] MED LIST changes: +CEFDINIR300 MG PO; +FOLIC ACID1 MG PO; +METRONIDAZOLE500 MG PO; +ULTRAM50 MG PO
[2016-12-12 14:25] LABS: HEMATOCRIT 43.4 % (36.0-46.0); MCH 32.5 PG (29.0-34.0); MCHC 34.1 G/DL (30.0-36.0); MCV 95.4 FL (83-99); MEAN PLAT.VOLUME 10.3 uM^3 (9.5-12.4); PLATELET COUNT 204 K/uL (156-360); RBC DIS.WIDTH-CV 12.1 % (11.8-14.6); RBC DIS.WIDTH-SD 42.5 % (39-53); RED BLOOD COUNT 4.55 M/uL (3.80-5.20); WHITE BLOOD COUNT 11.7 K/uL (4.1-10.2)
[2016-12-12 14:38] LABS: CHLORIDE 103 mEq/L (99-109); POTASSIUM 3.6 mEq/L (3.7-5.4); SODIUM 142 mEq/L (136-147)
[2016-12-12 14:40] LABS: GLUCOSE 91 mg/dL (70-99)
[2016-12-12 14:41] LABS: ANION GAP 15 MEQ/L (2-14)
[2016-12-12 14:42] LABS: TOTAL BILIRUBIN 0.4 mg/dL (0.0-1.0)
[2016-12-12 14:43] LABS: ALKALINE PHOSPHATASE 63 IU/L (3-129); SERUM ETHYL ALCOHOL 387 mg/dL
[2016-12-12 14:44] LABS: GFR ESTIMATE (CALCULATED) > 59 mL/min/
[2016-12-12 14:45] LABS: UREA NITROGEN (BUN) 8 mg/dL (9-23)
[2016-12-12 15:44] LABS: ADD MIUA? YES; BILIRUBIN NEGATIVE; BLOOD MODERATE; COLOR YELLOW ((YELLOW)); GLUCOSE (STRIP) NEGATIVE; KETONES NEGATIVE; LEUKOCYTES SMALL; NITRITE POSITIVE; PROTEIN (STRIP) 100; SPECIFIC GRAVITY 1.009 (1.000-1.030); UROBILINOGEN 0.2 MG/DL (0.2-1.0)
[2016-12-12 15:48] LABS: INTERNAL CONTROL VALID? YES
[2016-12-12 15:49] LABS: BACTERIA 1+ /HPF; EPITHELIAL CELLS RARE /HPF; MUCUS TRACE /LPF; UCUL ADDED? NO
[2016-12-12] MEDS ORDERED: INDERAL10 MG PO (15:52)
[2016-12-12] MEDS ORDERED: XANAX1 MG PO (15:52)
[2016-12-12 15:58] LABS: ADD MEDTOX COMMENT Y; AMPHETAMINE NEGATIVE (500 ng/mL); BARBITURATES NEGATIVE (200 ng/mL); BENZODIAZEPINES PRESUMPTIVE POSITIVE (150 ng/mL); COCAINE NEGATIVE (150 ng/mL); INTERNAL CONTROLS VALID? YES; METHADONE NEGATIVE (200 ng/mL); METHAMPHETAMINE NEGATIVE (500 ng/mL); OPIATES (MORPHINE) NEGATIVE (100 ng/mL); OXYCODONE NEGATIVE (100 ng/mL); PHENCYCLIDINE NEGATIVE (25 ng/mL); PROPOXYPHENE NEGATIVE (300 ng/mL); THC CANNABINOIDS NEGATIVE (50 ng/mL); TRICYCLIC ANTIDEPRESSANTS NEGATIVE (300 ng/mL)
[2016-12-12 16:34] LABS: BENZODIAZEPINES, URINE SCREEN POSITIVE (200 ng/mL)
[2016-12-13 05:26] VITALS: BP 166/86
[2016-12-13 07:46] VITALS: BP 158/83
[2016-12-13 11:11] VITALS: BP 162/87
[2016-12-13 15:31] VITALS: BP 155/88
[2016-12-14 07:19] VITALS: BP 98/68
[2016-12-14 11:21] VITALS: BP 122/75
[2016-12-14 15:40] VITALS: BP 117/70
[2016-12-15 07:27] VITALS: BP 123/81
[2016-12-15] MEDS ORDERED: BACTRIM,SEPT1 TABLET PO (10:31)
[2016-12-15] MEDS ORDERED: FOLIC ACID1 MG PO (10:31)
[2016-12-15] MEDS ORDERED: QUETIAPINE FUMA25 MG PO (10:31)
[2016-12-15] MEDS ORDERED: Thiamine,Vitamin B1 PO (10:31)
== END 2016-12-15 11:49 | disposition home or self-care (01) | DRG 885 ==
LOC: EME → EDBD 13:16 → EME 13:16 → 1WEST 12-13 03:23 → EDOF 12-13 03:23 → 1WEST 12-13 05:15
PROVIDERS: Emergency Medicine
DX: F33.9 Major depressive disorder, recurrent, unspecified (principal); F10.239 Alcohol dependence with withdrawal, unspecified; N39.0 Urinary tract infection, site not specified; R45.851 Suicidal ideations; F14.90 Cocaine use, unspecified, uncomplicated; F17.210 Nicotine dependence, cigarettes, uncomplicated; F10.229 Alcohol dependence with intoxication, unspecified; F41.0 Panic disorder [episodic paroxysmal anxiety]; G47.00 Insomnia, unspecified; Y90.8 Blood alcohol level of 240 mg/100 ml or more; F13.10 Sedative, hypnotic or anxiolytic abuse, uncomplicated; Z59.0 Homelessness; Z79.899 Other long term (current) drug therapy; Z91.14 Patient's other noncompliance with medication regimen; Z88.0 Allergy status to penicillin; Z88.6 Allergy status to analgesic agent; Z81.8 Family history of other mental and behavioral disorders
CPT/HCPCS: 80053; 81003; 84703; 84999; 85027; 87077; 87086; 87186; 90839; 99281; 99285; G0480

== ENCOUNTER 2016-12-19 14:09 | Emergency (ER) | payer OTHER ==
[~2016-12-19] VITALS: Ht 157.5 cm; Wt 67.0 kg
[~2016-12-19 14:09] MED LIST changes: +BACTRIM,SEPT1 TABLET PO; +INDERAL10 MG PO; +Thiamine,Vitamin B1 PO; +XANAX1 MG PO
[2016-12-19 16:53] VITALS: BP 130/89
[2016-12-20] MEDS ORDERED: ONE DAILY WOME1 EACH PO (09:16)
[2016-12-20] MEDS ORDERED: PAXIL20 MG PO (09:16)
[2016-12-20] MEDS ORDERED: SEROQUEL12.5 MG PO (09:16)
[2016-12-20] MEDS ORDERED: FOLIC ACID1 MG PO (09:16)
[2016-12-20] MEDS ORDERED: B-COMPLEX W/VI1 EAC1 PO (09:16)
[2016-12-20] MEDS ORDERED: DESYREL100 MG PO (09:16)
[2016-12-20] MEDS ORDERED: INDERAL10 MG PO (09:16)
== END 2016-12-19 17:02 | disposition home or self-care (01) ==
LOC: EME 14:09
DX: F10.129 Alcohol abuse with intoxication, unspecified (principal); F31.9 Bipolar disorder, unspecified; F41.9 Anxiety disorder, unspecified; F17.200 Nicotine dependence, unspecified, uncomplicated; Z88.0 Allergy status to penicillin
CPT/HCPCS: 81003; 99281; 99284; G0480

== ENCOUNTER 2016-12-20 04:40 | Emergency (ER) | payer OTHER ==
[~2016-12-20] VITALS: Ht 157.5 cm; Wt 68.0 kg
[2016-12-20 06:51] LABS: MCH 32.1 PG (29.0-34.0); MCHC 34.5 G/DL (30.0-36.0); MCV 93.1 FL (83-99); MEAN PLAT.VOLUME 9.9 uM^3 (9.5-12.4); PLATELET COUNT 230 K/uL (156-360); RBC DIS.WIDTH-CV 11.5 % (11.8-14.6); RBC DIS.WIDTH-SD 39.2 % (39-53); RED BLOOD COUNT 4.08 M/uL (3.80-5.20); WHITE BLOOD COUNT 6.5 K/uL (4.1-10.2)
[2016-12-20 07:31] LABS: CHLORIDE 100 mEq/L (99-109); POTASSIUM 3.7 mEq/L (3.7-5.4); SODIUM 137 mEq/L (136-147)
[2016-12-20 07:33] LABS: GLUCOSE 85 mg/dL (70-99)
[2016-12-20 07:34] LABS: ANION GAP 10 MEQ/L (2-14)
[2016-12-20 07:36] LABS: SERUM ETHYL ALCOHOL < 10 mg/dL
[2016-12-20 07:37] LABS: GFR ESTIMATE (CALCULATED) > 59 mL/min/
[2016-12-20 07:38] LABS: UREA NITROGEN (BUN) 7 mg/dL (9-23)
[2016-12-20 08:40] VITALS: BP 152/74
[2016-12-20] MEDS ORDERED: ONE DAILY WOME1 EACH PO (09:16)
[2016-12-20] MEDS ORDERED: B-COMPLEX W/VI1 EAC1 PO (09:16)
[2016-12-20] MEDS ORDERED: SEROQUEL12.5 MG PO (09:16)
[2016-12-20] MEDS ORDERED: INDERAL10 MG PO (09:16)
[2016-12-20] MEDS ORDERED: PAXIL20 MG PO (09:16)
[2016-12-20] MEDS ORDERED: DESYREL100 MG PO (09:16)
[2016-12-20] MEDS ORDERED: FOLIC ACID1 MG PO (09:16)
== END 2016-12-20 10:42 | disposition home or self-care (01) ==
LOC: EME 04:40
PROVIDERS: Emergency Medicine
DX: F33.2 Major depressive disorder, recurrent severe without psychotic features (principal); F10.20 Alcohol dependence, uncomplicated; R25.1 Tremor, unspecified; R11.0 Nausea; F41.9 Anxiety disorder, unspecified; F13.20 Sedative, hypnotic or anxiolytic dependence, uncomplicated; F17.200 Nicotine dependence, unspecified, uncomplicated
CPT/HCPCS: 80048; 81003; 85027; 90839; 99281; 99284; G0480

== ENCOUNTER 2017-01-18 19:19 | Emergency (ER) | payer OTHER ==
[~2017-01-18] VITALS: Ht 157.5 cm; Wt 68.5 kg
[~2017-01-18 19:19] MED LIST changes: +B-COMPLEX W/VI1 EAC1 PO; +ONE DAILY WOME1 EACH PO
[2017-01-18 22:08] LABS: EOSINOPHIL COUNT 0.1 K/uL (0-0.3); HEMATOCRIT 43.3 % (36.0-46.0); IMMATURE GRANULOCYTE (%) 0.2 % (0.0-0.7); LYMPHOCYTE COUNT 3.2 K/uL (1.0-2.8); MCH 31.9 PG (29.0-34.0); MCHC 33.7 G/DL (30.0-36.0); MCV 94.7 FL (83-99); MEAN PLAT.VOLUME 10.1 uM^3 (9.5-12.4); MONOCYTE COUNT 0.4 K/uL (0-0.8); NEUTROPHIL (%) 35.2 % (45-76); PLATELET COUNT 219 K/uL (156-360); RBC DIS.WIDTH-CV 12.7 % (11.8-14.6); RED BLOOD COUNT 4.57 M/uL (3.80-5.20); WHITE BLOOD COUNT 5.7 K/uL (4.1-10.2)
[2017-01-18 22:14] LABS: CHLORIDE 108 mEq/L (99-109); POTASSIUM 3.4 mEq/L (3.7-5.4); SODIUM 147 mEq/L (136-147)
[2017-01-18 22:16] LABS: GLUCOSE 96 mg/dL (70-99)
[2017-01-18 22:17] LABS: ANION GAP 14 MEQ/L (2-14)
[2017-01-18 22:18] LABS: TOTAL BILIRUBIN 0.3 mg/dL (0.0-1.0)
[2017-01-18 22:19] LABS: SERUM ETHYL ALCOHOL 347 mg/dL
[2017-01-18 22:20] LABS: ALKALINE PHOSPHATASE 65 IU/L (3-129); GFR ESTIMATE (CALCULATED) > 59 mL/min/
[2017-01-18 22:21] LABS: UREA NITROGEN (BUN) 7 mg/dL (9-23)
[2017-01-18 22:28] LABS: QUANTITATIVE HCG < 4.0 MIU/ML
[2017-01-18 23:40] LABS: ADD MIUA? YES; BILIRUBIN NEGATIVE; BLOOD MODERATE; COLOR YELLOW ((YELLOW)); GLUCOSE (STRIP) NEGATIVE; KETONES NEGATIVE; LEUKOCYTES LARGE; NITRITE NEGATIVE; PROTEIN (STRIP) 30; SPECIFIC GRAVITY 1.008 (1.000-1.030); UROBILINOGEN 0.2 MG/DL (0.2-1.0)
[2017-01-18 23:54] LABS: AMPHETAMINE NEGATIVE (500 ng/mL); BARBITURATES NEGATIVE (200 ng/mL); BENZODIAZEPINES PRESUMPTIVE POSITIVE (150 ng/mL); COCAINE NEGATIVE (150 ng/mL); INTERNAL CONTROLS VALID? YES; METHADONE NEGATIVE (200 ng/mL); METHAMPHETAMINE NEGATIVE (500 ng/mL); OPIATES (MORPHINE) NEGATIVE (100 ng/mL); OXYCODONE NEGATIVE (100 ng/mL); PHENCYCLIDINE NEGATIVE (25 ng/mL); PROPOXYPHENE NEGATIVE (300 ng/mL); THC CANNABINOIDS NEGATIVE (50 ng/mL); TRICYCLIC ANTIDEPRESSANTS NEGATIVE (300 ng/mL)
[2017-01-18 23:55] LABS: ADD MEDTOX COMMENT Y
[2017-01-19 00:03] LABS: BACTERIA NONE SEEN /HPF; EPITHELIAL CELLS RARE /HPF; MUCUS TRACE /LPF; RED BLOOD CELLS 0-5 /HPF (0-5); UCUL ADDED? YES; WHITE BLOOD CELLS 20-30 /HPF (0-5)
[2017-01-19 00:52] LABS: BENZODIAZEPINES, URINE SCREEN POSITIVE (200 ng/mL)
[2017-01-19 13:37] VITALS: BP 155/103
== END 2017-01-19 13:39 ==
LOC: EME 19:19
PROVIDERS: Emergency Medicine
DX: F10.229 Alcohol dependence with intoxication, unspecified (principal); Y90.8 Blood alcohol level of 240 mg/100 ml or more; F41.9 Anxiety disorder, unspecified; F32.9 Major depressive disorder, single episode, unspecified; Z59.0 Homelessness; F17.200 Nicotine dependence, unspecified, uncomplicated
CPT/HCPCS: 80053; 81003; 84702; 84999; 85025; 87077; 87086; 87186; 90839; 99281; 99284; G0480

== ENCOUNTER 2017-01-21 09:32 | Emergency (ER) | payer OTHER ==
[~2017-01-21] VITALS: Ht 157.5 cm; Wt 68.0 kg
[2017-01-21 10:40] LABS: EOSINOPHIL (%) 0.6 % (0-5); EOSINOPHIL COUNT 0.1 K/uL (0-0.3); IMMATURE GRANULOCYTE (%) 0.3 % (0.0-0.7); INSTRUMENT ABS NEUTROPHIL CT 5.8 K/uL; LYMPHOCYTE COUNT 3.3 K/uL (1.0-2.8); MCH 32.1 PG (29.0-34.0); MCHC 33.8 G/DL (30.0-36.0); MCV 94.9 FL (83-99); MEAN PLAT.VOLUME 10.4 uM^3 (9.5-12.4); MONOCYTE COUNT 0.9 K/uL (0-0.8); NEUTROPHIL (%) 57.2 % (45-76); NEUTROPHIL COUNT 5.8 K/uL (1.8-6.4); PLATELET COUNT 176 K/uL (156-360); RBC DIS.WIDTH-CV 12.8 % (11.8-14.6); RBC DIS.WIDTH-SD 45.1 % (39-53); RED BLOOD COUNT 4.74 M/uL (3.80-5.20); WHITE BLOOD COUNT 10.1 K/uL (4.1-10.2)
[2017-01-21 10:56] LABS: CHLORIDE 109 mEq/L (99-109); POTASSIUM 3.6 mEq/L (3.7-5.4); SODIUM 147 mEq/L (136-147)
[2017-01-21 10:57] LABS: GLUCOSE 85 mg/dL (70-99)
[2017-01-21 10:59] LABS: ANION GAP 17 MEQ/L (2-14)
[2017-01-21 11:01] LABS: GFR ESTIMATE (CALCULATED) > 59 mL/min/; SERUM ETHYL ALCOHOL 452 mg/dL
[2017-01-21 11:02] LABS: UREA NITROGEN (BUN) 7 mg/dL (9-23)
[2017-01-21 11:10] LABS: QUANTITATIVE HCG < 4.0 MIU/ML
[2017-01-21 13:44] LABS: ADD MIUA? YES; BILIRUBIN NEGATIVE; BLOOD SMALL; COLOR YELLOW ((YELLOW)); GLUCOSE (STRIP) NEGATIVE; KETONES NEGATIVE; LEUKOCYTES LARGE; NITRITE NEGATIVE; PROTEIN (STRIP) 30; UROBILINOGEN 0.2 MG/DL (0.2-1.0)
[2017-01-21 13:47] LABS: AMPHETAMINE PRESUMPTIVE POSITIVE (500 ng/mL); BARBITURATES NEGATIVE (200 ng/mL); BENZODIAZEPINES PRESUMPTIVE POSITIVE (150 ng/mL); COCAINE NEGATIVE (150 ng/mL); INTERNAL CONTROLS VALID? YES; METHADONE NEGATIVE (200 ng/mL); METHAMPHETAMINE NEGATIVE (500 ng/mL); OPIATES (MORPHINE) NEGATIVE (100 ng/mL); OXYCODONE PRESUMPTIVE POSITIVE (100 ng/mL); PHENCYCLIDINE NEGATIVE (25 ng/mL); PROPOXYPHENE NEGATIVE (300 ng/mL); THC CANNABINOIDS NEGATIVE (50 ng/mL); TRICYCLIC ANTIDEPRESSANTS NEGATIVE (300 ng/mL)
[2017-01-21 13:48] LABS: ADD MEDTOX COMMENT Y
[2017-01-21 14:05] LABS: EPITHELIAL CELLS 1+ /HPF; RED BLOOD CELLS RARE /HPF (0-5); WHITE BLOOD CELLS TNTC /HPF (0-5)
[2017-01-21 14:06] LABS: BACTERIA 1+ /HPF; MUCUS NONE SEEN /LPF
[2017-01-21 14:16] LABS: BENZODIAZEPINES, URINE SCREEN POSITIVE (200 ng/mL)
[2017-01-21] MEDS ORDERED: THIAMINE HCL100 MG PO (15:34)
[2017-01-21] MEDS ORDERED: LIBRIUM25 MG PO (15:34)
[2017-01-21] MEDS ORDERED: CIPRO500 MG PO (15:34)
[2017-01-21 17:32] VITALS: BP 145/84
== END 2017-01-21 17:50 | disposition home or self-care (01) ==
LOC: EME 09:32
PROVIDERS: Emergency Medicine
DX: F10.229 Alcohol dependence with intoxication, unspecified (principal); Y90.8 Blood alcohol level of 240 mg/100 ml or more; N39.0 Urinary tract infection, site not specified; Z88.0 Allergy status to penicillin; F17.200 Nicotine dependence, unspecified, uncomplicated
CPT/HCPCS: 80048; 81003; 84702; 84999; 85025; 99281; 99285; G0480

== ENCOUNTER 2017-01-23 04:22 | Emergency (ER) | payer OTHER ==
[~2017-01-23] VITALS: Ht 157.5 cm; Wt 67.0 kg
[~2017-01-23 04:22] MED LIST changes: +CIPRO500 MG PO; +INDERAL20 MG PO
[2017-01-23 04:49] LABS: ADD MIUA? YES; BILIRUBIN NEGATIVE; BLOOD SMALL; COLOR STRAW ((YELLOW)); GLUCOSE (STRIP) NEGATIVE; KETONES NEGATIVE; LEUKOCYTES MODERATE; NITRITE NEGATIVE; PROTEIN (STRIP) NEGATIVE; SPECIFIC GRAVITY 1.005 (1.000-1.030); UROBILINOGEN 0.2 MG/DL (0.2-1.0)
[2017-01-23 04:58] LABS: BACTERIA RARE /HPF; EPITHELIAL CELLS RARE /HPF; MUCUS NONE SEEN /LPF; RED BLOOD CELLS 0-5 /HPF (0-5); UCUL ADDED? YES
[2017-01-23 05:19] LABS: HEMATOCRIT 44.4 % (36.0-46.0); MCH 31.9 PG (29.0-34.0); MCV 93.7 FL (83-99); MEAN PLAT.VOLUME 10.1 uM^3 (9.5-12.4); PLATELET COUNT 220 K/uL (156-360); RBC DIS.WIDTH-CV 12.3 % (11.8-14.6); RBC DIS.WIDTH-SD 42.6 % (39-53); RED BLOOD COUNT 4.74 M/uL (3.80-5.20); WHITE BLOOD COUNT 9.1 K/uL (4.1-10.2)
[2017-01-23 05:32] LABS: CHLORIDE 105 mEq/L (99-109); POTASSIUM 3.4 mEq/L (3.7-5.4); SODIUM 146 mEq/L (136-147)
[2017-01-23 05:34] LABS: GLUCOSE 88 mg/dL (70-99)
[2017-01-23 05:35] LABS: ANION GAP 15 MEQ/L (2-14)
[2017-01-23 05:38] LABS: GFR ESTIMATE (CALCULATED) > 59 mL/min/
[2017-01-23 05:39] LABS: UREA NITROGEN (BUN) 7 mg/dL (9-23)
[2017-01-23 05:41] LABS: TROP-I INTERPRETATION NEGATIVE; TROPONIN-I < 0.01 ng/mL (0.0-0.30)
[2017-01-23] MEDS ORDERED: LIBRIUM5 MG PO (06:27)
[2017-01-23 07:29] LABS: TROP-I INTERPRETATION NEGATIVE; TROPONIN-I < 0.01 ng/mL (0.0-0.30)
[2017-01-23 10:13] VITALS: BP 114/66
== END 2017-01-23 10:14 | disposition home or self-care (01) ==
LOC: EME → EDBD 04:22 → EME 04:22
PROVIDERS: Emergency Medicine
DX: F10.229 Alcohol dependence with intoxication, unspecified (principal); R07.9 Chest pain, unspecified; F41.9 Anxiety disorder, unspecified; Z88.0 Allergy status to penicillin; Z88.8 Allergy status to other drugs, medicaments and biological substances; F17.200 Nicotine dependence, unspecified, uncomplicated
CPT/HCPCS: 71020; 80048; 81003; 84484; 85027; 87086; 93005; 99281; 99284

== ENCOUNTER 2017-02-23 10:55 | Inpatient (IN) | payer OTHER ==
[~2017-02-23] VITALS: Ht 158.8 cm; Wt 71.1 kg
[~2017-02-23 10:55] MED LIST changes: +LIBRIUM5 MG PO
[2017-02-23 12:07] LABS: HEMATOCRIT 43.3 % (36.0-46.0); MCH 32.6 PG (29.0-34.0); MCHC 34.4 G/DL (30.0-36.0); MCV 94.7 FL (83-99); MEAN PLAT.VOLUME 9.9 uM^3 (9.5-12.4); PLATELET COUNT 180 K/uL (156-360); RBC DIS.WIDTH-CV 11.9 % (11.8-14.6); RBC DIS.WIDTH-SD 41.9 % (39-53); RED BLOOD COUNT 4.57 M/uL (3.80-5.20); WHITE BLOOD COUNT 8.9 K/uL (4.1-10.2)
[2017-02-23 12:13] LABS: CHLORIDE 98 mEq/L (99-109)
[2017-02-23 12:14] LABS: SODIUM 131 mEq/L (136-147)
[2017-02-23 12:16] LABS: ADD MIUA? YES; BILIRUBIN NEGATIVE; BLOOD NEGATIVE; COLOR YELLOW ((YELLOW)); GLUCOSE 124 mg/dL (70-99); GLUCOSE (STRIP) NEGATIVE; KETONES 20; LEUKOCYTES TRACE; NITRITE NEGATIVE; PROTEIN (STRIP) 100; SPECIFIC GRAVITY 1.017 (1.000-1.030); UROBILINOGEN 0.2 MG/DL (0.2-1.0)
[2017-02-23 12:17] LABS: ANION GAP 19 MEQ/L (2-14)
[2017-02-23 12:19] LABS: ALKALINE PHOSPHATASE 60 IU/L (3-129); SERUM ETHYL ALCOHOL 53 mg/dL
[2017-02-23 12:20] LABS: GFR ESTIMATE (CALCULATED) > 59 mL/min/
[2017-02-23 12:21] LABS: UREA NITROGEN (BUN) 11 mg/dL (9-23)
[2017-02-23 12:24] LABS: BACTERIA RARE /HPF; EPITHELIAL CELLS RARE /HPF; MUCUS TRACE /LPF; RED BLOOD CELLS 0-5 /HPF (0-5); UCUL ADDED? YES
[2017-02-23 12:34] LABS: AMPHETAMINE NEGATIVE (500 ng/mL); BARBITURATES NEGATIVE (200 ng/mL); BENZODIAZEPINES PRESUMPTIVE POSITIVE (150 ng/mL); COCAINE NEGATIVE (150 ng/mL); INTERNAL CONTROLS VALID? YES; METHADONE NEGATIVE (200 ng/mL); METHAMPHETAMINE NEGATIVE (500 ng/mL); OPIATES (MORPHINE) NEGATIVE (100 ng/mL); OXYCODONE NEGATIVE (100 ng/mL); PHENCYCLIDINE NEGATIVE (25 ng/mL); PROPOXYPHENE NEGATIVE (300 ng/mL); THC CANNABINOIDS NEGATIVE (50 ng/mL); TRICYCLIC ANTIDEPRESSANTS NEGATIVE (300 ng/mL)
[2017-02-23 12:36] LABS: ADD MEDTOX COMMENT Y
[2017-02-23 13:23] LABS: BENZODIAZEPINES, URINE SCREEN POSITIVE (200 ng/mL)
[2017-02-23] MEDS ORDERED: PAXIL20 MG PO (15:44)
[2017-02-23] MEDS ORDERED: ATIVAN1 MG PO (15:45)
[2017-02-23] MEDS ORDERED: DESYREL100 MG PO (15:45)
[2017-02-23 16:46] LABS: MAGNESIUM 1.4 mg/dL (1.3-2.7)
[2017-02-23 17:21] VITALS: BP 162/80
[2017-02-23 20:21] VITALS: BP 147/83
[2017-02-23 23:26] VITALS: BP 146/78
[2017-02-24 04:16] VITALS: BP 134/80
[2017-02-24 07:48] LABS: ANION GAP 12 MEQ/L (2-14); CHLORIDE 104 MEQ/L (99-109); GFR ESTIMATE (CALCULATED) > 59 mL/min/; POTASSIUM 3.2 MEQ/L (3.7-5.4); SAMPLE HEMOLYSIS CHECK 0; SAMPLE ICTERIC CHECK 0; SAMPLE LIPEMIA CHECK 0; UREA NITROGEN (BUN) 6 mg/dL (9-23)
[2017-02-24 07:51] LABS: GLUCOSE 80 mg/dL (70-99); SODIUM 141 MEQ/L (136-147)
[2017-02-24 07:57] VITALS: BP 135/93
[2017-02-24 11:27] VITALS: BP 167/90
[2017-02-24 15:54] VITALS: BP 163/85
[2017-02-24 19:52] VITALS: BP 154/78
[2017-02-24 23:22] VITALS: BP 137/78
[2017-02-25 03:15] VITALS: BP 135/78
[2017-02-25 07:02] LABS: HEMATOCRIT 37.3 % (36.0-46.0); MCH 32.6 PG (29.0-34.0); MCHC 33.5 G/DL (30.0-36.0); MCV 97.4 FL (83-99); MEAN PLAT.VOLUME 10.4 uM^3 (9.5-12.4); PLATELET COUNT 160 K/uL (156-360); RBC DIS.WIDTH-CV 12.5 % (11.8-14.6); RBC DIS.WIDTH-SD 44.5 % (39-53); RED BLOOD COUNT 3.83 M/uL (3.80-5.20); WHITE BLOOD COUNT 5.1 K/uL (4.1-10.2)
[2017-02-25 07:04] VITALS: BP 137/92
[2017-02-25 07:12] LABS: ANION GAP 10 MEQ/L (2-14); CHLORIDE 104 MEQ/L (99-109); GFR ESTIMATE (CALCULATED) > 59 mL/min/; MAGNESIUM 1.5 mg/dl (1.3-2.7); POTASSIUM 3.8 MEQ/L (3.7-5.4); SAMPLE HEMOLYSIS CHECK 0; SAMPLE ICTERIC CHECK 0; SAMPLE LIPEMIA CHECK 0; SODIUM 139 MEQ/L (136-147); UREA NITROGEN (BUN) 4 mg/dL (9-23)
[2017-02-25 07:14] LABS: GLUCOSE 103 mg/dL (70-99)
== END 2017-02-25 10:57 | disposition left against medical advice (07) | DRG 894 ==
LOC: EME 10:55 → EDOF 15:24 → 3EAST 15:24 → CANRESERV 15:30 → ENRESERV 15:30 → 3EAST 17:04
PROVIDERS: Emergency Medicine; Hospitalist; Internal Medicine
DX: F10.239 Alcohol dependence with withdrawal, unspecified (principal); E87.2 Acidosis; E87.6 Hypokalemia; E83.42 Hypomagnesemia; E86.0 Dehydration; F41.1 Generalized anxiety disorder; F41.0 Panic disorder [episodic paroxysmal anxiety]; F43.10 Post-traumatic stress disorder, unspecified; F17.210 Nicotine dependence, cigarettes, uncomplicated
CPT/HCPCS: 80048; 80053; 81003; 83735; 84484; 84999; 85027; 87086; 99281; 99285; G0480; J1630; J2060; J2405; J3475; J7030; Q0177; S0028

== ENCOUNTER 2017-03-29 09:00 | Emergency (ER) | payer OTHER ==
[~2017-03-29] VITALS: Ht 160 cm; Wt 65.5 kg
[2017-03-29 12:35] LABS: BASOPHIL COUNT 0.1 K/uL (0-0.1); EOSINOPHIL (%) 0.4 % (0-5); HEMATOCRIT 40.4 % (36.0-46.0); IMMATURE GRANULOCYTE (%) 0.4 % (0.0-0.7); INSTRUMENT ABS NEUTROPHIL CT 2.6 K/uL; LYMPHOCYTE COUNT 2.1 K/uL (1.0-2.8); MCH 33.9 PG (29.0-34.0); MCHC 34.4 G/DL (30.0-36.0); MCV 98.5 FL (83-99); MEAN PLAT.VOLUME 10.1 uM^3 (9.5-12.4); MONOCYTE (%) 9.2 % (3-12); MONOCYTE COUNT 0.5 K/uL (0-0.8); NEUTROPHIL (%) 48.5 % (45-76); NEUTROPHIL COUNT 2.6 K/uL (1.8-6.4); PLATELET COUNT 187 K/uL (156-360); RBC DIS.WIDTH-CV 12.9 % (11.8-14.6); RBC DIS.WIDTH-SD 46.3 % (39-53); WHITE BLOOD COUNT 5.3 K/uL (4.1-10.2)
[2017-03-29 12:46] LABS: CHLORIDE 109 mEq/L (99-109); POTASSIUM 3.7 mEq/L (3.7-5.4); SODIUM 147 mEq/L (136-147)
[2017-03-29 12:48] LABS: GLUCOSE 75 mg/dL (70-99)
[2017-03-29 12:49] LABS: ANION GAP 15 MEQ/L (2-14)
[2017-03-29 12:51] LABS: SERUM ETHYL ALCOHOL 359 mg/dL
[2017-03-29 12:52] LABS: GFR ESTIMATE (CALCULATED) > 59 mL/min/
[2017-03-29 12:53] LABS: UREA NITROGEN (BUN) 7 mg/dL (9-23)
[2017-03-29 16:41] VITALS: BP 126/72
== END 2017-03-29 16:42 | disposition home or self-care (01) ==
LOC: EME 09:00
PROVIDERS: Emergency Medicine
DX: F10.20 Alcohol dependence, uncomplicated (principal); Y90.8 Blood alcohol level of 240 mg/100 ml or more; S00.10XA Contusion of unspecified eyelid and periocular area, initial encounter; S90.32XA Contusion of left foot, initial encounter; S90.02XA Contusion of left ankle, initial encounter; M79.89 Other specified soft tissue disorders; M79.662 Pain in left lower leg; Y09 Assault by unspecified means; Y07.01 Husband, perpetrator of maltreatment and neglect; Z81.1 Family history of alcohol abuse and dependence; F17.200 Nicotine dependence, unspecified, uncomplicated
CPT/HCPCS: 73590; 73610; 73630; 80048; 85025; 99281; 99284; G0480

== ENCOUNTER 2017-04-18 21:18 | Inpatient (IN) | payer OTHER ==
[~2017-04-18] VITALS: Ht 157.5 cm; Wt 66.7 kg
[2017-04-18 22:52] LABS: HEMATOCRIT 39.3 % (36.0-46.0); MCH 34.7 PG (29.0-34.0); MCHC 34.9 G/DL (30.0-36.0); MCV 99.5 FL (83-99); MEAN PLAT.VOLUME 10.1 uM^3 (9.5-12.4); PLATELET COUNT 213 K/uL (156-360); RBC DIS.WIDTH-CV 11.9 % (11.8-14.6); RBC DIS.WIDTH-SD 44.1 % (39-53); RED BLOOD COUNT 3.95 M/uL (3.80-5.20); WHITE BLOOD COUNT 5.7 K/uL (4.1-10.2)
[2017-04-18 22:58] LABS: ADD MIUA? NO; BILIRUBIN NEGATIVE; BLOOD NEGATIVE; COLOR YELLOW ((YELLOW)); GLUCOSE (STRIP) NEGATIVE; KETONES NEGATIVE; LEUKOCYTES NEGATIVE; NITRITE NEGATIVE; PROTEIN (STRIP) 30; SPECIFIC GRAVITY 1.011 (1.000-1.030); UROBILINOGEN 0.2 MG/DL (0.2-1.0)
[2017-04-18 23:03] LABS: CHLORIDE 102 mEq/L (99-109); POTASSIUM 3.9 mEq/L (3.7-5.4); SODIUM 142 mEq/L (136-147)
[2017-04-18 23:06] LABS: GLUCOSE 97 mg/dL (70-99)
[2017-04-18 23:07] LABS: ANION GAP 16 MEQ/L (2-14); TOTAL BILIRUBIN 0.5 mg/dL (0.0-1.0)
[2017-04-18 23:08] LABS: SERUM ETHYL ALCOHOL 282 mg/dL
[2017-04-18 23:09] LABS: ALKALINE PHOSPHATASE 48 IU/L (3-129); GFR ESTIMATE (CALCULATED) > 59 mL/min/
[2017-04-18 23:10] LABS: UREA NITROGEN (BUN) 5 mg/dL (9-23)
[2017-04-18 23:18] LABS: QUANTITATIVE HCG < 4.0 MIU/ML
[2017-04-18 23:54] LABS: AMPHETAMINE NEGATIVE (500 ng/mL); BARBITURATES NEGATIVE (200 ng/mL); BENZODIAZEPINES PRESUMPTIVE POSITIVE (150 ng/mL); COCAINE PRESUMPTIVE POSITIVE (150 ng/mL); INTERNAL CONTROLS VALID? YES; METHADONE NEGATIVE (200 ng/mL); METHAMPHETAMINE NEGATIVE (500 ng/mL); OPIATES (MORPHINE) NEGATIVE (100 ng/mL); OXYCODONE NEGATIVE (100 ng/mL); PHENCYCLIDINE NEGATIVE (25 ng/mL); PROPOXYPHENE NEGATIVE (300 ng/mL); THC CANNABINOIDS NEGATIVE (50 ng/mL); TRICYCLIC ANTIDEPRESSANTS NEGATIVE (300 ng/mL)
[2017-04-18 23:57] LABS: ADD MEDTOX COMMENT Y
[2017-04-19 00:33] LABS: BENZODIAZEPINES, URINE SCREEN POSITIVE (200 ng/mL)
[2017-04-19 08:11] VITALS: BP 162/90
[2017-04-19 16:02] VITALS: BP 137/81
[2017-04-20 00:33] LABS: C DIFF TOXIN POSITIVE (NEGATIVE)
[2017-04-20 00:34] LABS: PROBE CHECK PASS
[2017-04-20 14:02] VITALS: BP 144/83
[2017-04-20 15:45] VITALS: BP 146/83
[2017-04-21 07:42] VITALS: BP 115/70
[2017-04-21 09:02] VITALS: BP 119/71
[2017-04-21 11:27] VITALS: BP 117/74
[2017-04-21 15:23] VITALS: BP 126/74
[2017-04-22 07:25] VITALS: BP 113/56
[2017-04-22 15:30] VITALS: BP 120/72
[2017-04-23 07:04] VITALS: BP 120/56
[2017-04-23 14:48] VITALS: BP 120/65
[2017-04-24 07:37] VITALS: BP 110/53
[2017-04-24] MEDS ORDERED: QUETIAPINE FUM100 MG PO (08:52)
[2017-04-24] MEDS ORDERED: NALTREXONE HCL50 MG PO (08:52)
[2017-04-24] MEDS ORDERED: METRONIDAZOLE500 MG PO (08:52)
[2017-04-24] MEDS ORDERED: PAROXETINE HCL30 MG PO (08:52)
[2017-04-24] MEDS ORDERED: QUETIAPINE FUMA50 MG PO (08:52)
[2017-04-24] MEDS ORDERED: Thiamine,Vitamin B1 PO (08:52)
[2017-04-24] MEDS ORDERED: TRAZODONE HCL50 MG PO (08:52)
[2017-04-24] MEDS ORDERED: FOLIC ACID1 MG PO (08:52)
== END 2017-04-24 10:35 | disposition home or self-care (01) | DRG 885 ==
LOC: EME 21:18 → 1WEST 04-19 06:51 → EDOF 04-19 06:51 → ENRESERV 04-19 07:45 → ENRESERVDT 04-19 07:45 → ENRESERVTM 04-19 07:45 → 1WEST 04-19 07:57
PROVIDERS: Emergency Medicine; Psychiatry & Neurology Psychiatry
DX: F33.9 Major depressive disorder, recurrent, unspecified (principal); R45.851 Suicidal ideations; F17.200 Nicotine dependence, unspecified, uncomplicated; Y90.8 Blood alcohol level of 240 mg/100 ml or more; Z59.0 Homelessness; F10.230 Alcohol dependence with withdrawal, uncomplicated; F14.10 Cocaine abuse, uncomplicated; F43.10 Post-traumatic stress disorder, unspecified; F41.0 Panic disorder [episodic paroxysmal anxiety]; A04.72 Enterocolitis due to Clostridium difficile, not specified as recurrent; F41.9 Anxiety disorder, unspecified
CPT/HCPCS: 80053; 81003; 84702; 84999; 85027; 87493; 90839; 97150 GO; 97165 GO; 99281; 99285; G0480

== ENCOUNTER 2017-05-08 17:26 | Emergency (ER) | payer OTHER ==
[~2017-05-08] VITALS: Ht 157.5 cm; Wt 57.3 kg
[~2017-05-08 17:26] MED LIST changes: +NALTREXONE HCL50 MG PO; +PAROXETINE HCL30 MG PO; +QUETIAPINE FUM100 MG PO; +TRAZODONE HCL50 MG PO
[2017-05-08 18:14] LABS: HEMATOCRIT 45.2 % (36.0-46.0); MCHC 34.1 G/DL (30.0-36.0); MCV 99.8 FL (83-99); MEAN PLAT.VOLUME 10.1 uM^3 (9.5-12.4); RBC DIS.WIDTH-CV 11.4 % (11.8-14.6); RBC DIS.WIDTH-SD 42.2 % (39-53); RED BLOOD COUNT 4.53 M/uL (3.80-5.20); WHITE BLOOD COUNT 5.1 K/uL (4.1-10.2)
[2017-05-08 18:19] LABS: ADD MIUA? NO; BILIRUBIN NEGATIVE; BLOOD NEGATIVE; COLOR STRAW ((YELLOW)); GLUCOSE (STRIP) NEGATIVE; KETONES NEGATIVE; LEUKOCYTES NEGATIVE; NITRITE NEGATIVE; PROTEIN (STRIP) 30; SPECIFIC GRAVITY 1.005 (1.000-1.030); UROBILINOGEN 0.2 MG/DL (0.2-1.0)
[2017-05-08 18:24] LABS: PLATELET COUNT 303 K/uL (156-360)
[2017-05-08 18:28] LABS: ADD MEDTOX COMMENT Y; AMPHETAMINE NEGATIVE (500 ng/mL); BARBITURATES NEGATIVE (200 ng/mL); BENZODIAZEPINES PRESUMPTIVE POSITIVE (150 ng/mL); COCAINE NEGATIVE (150 ng/mL); INTERNAL CONTROLS VALID? YES; METHADONE NEGATIVE (200 ng/mL); METHAMPHETAMINE NEGATIVE (500 ng/mL); OPIATES (MORPHINE) NEGATIVE (100 ng/mL); OXYCODONE NEGATIVE (100 ng/mL); PHENCYCLIDINE NEGATIVE (25 ng/mL); PROPOXYPHENE NEGATIVE (300 ng/mL); THC CANNABINOIDS NEGATIVE (50 ng/mL); TRICYCLIC ANTIDEPRESSANTS NEGATIVE (300 ng/mL)
[2017-05-08 18:29] LABS: CHLORIDE 107 mEq/L (99-109); POTASSIUM 3.7 mEq/L (3.7-5.4); SODIUM 146 mEq/L (136-147)
[2017-05-08 18:31] LABS: GLUCOSE 94 mg/dL (70-99)
[2017-05-08 18:32] LABS: ANION GAP 13 MEQ/L (2-14)
[2017-05-08 18:34] LABS: GFR ESTIMATE (CALCULATED) > 59 mL/min/; SERUM ETHYL ALCOHOL 371 mg/dL
[2017-05-08 18:36] LABS: UREA NITROGEN (BUN) 5 mg/dL (9-23)
[2017-05-08 18:38] LABS: SALICYLATE < 5.0 MG/DL (15-30)
[2017-05-08 18:48] LABS: QUANTITATIVE HCG < 4.0 MIU/ML
[2017-05-08 18:55] LABS: BENZODIAZEPINES, URINE SCREEN POSITIVE (200 ng/mL)
[2017-05-09] MEDS ORDERED: LIBRIUM25 MG PO (05:44)
[2017-05-09 06:05] VITALS: BP 152/96
== END 2017-05-09 06:17 | disposition home or self-care (01) ==
LOC: EME → EDBD 17:26 → EME 17:26
PROVIDERS: Physician Assistant
DX: F10.129 Alcohol abuse with intoxication, unspecified (principal); F19.14 Other psychoactive substance abuse with psychoactive substance-induced mood disorder; F33.9 Major depressive disorder, recurrent, unspecified; Y90.8 Blood alcohol level of 240 mg/100 ml or more; F43.10 Post-traumatic stress disorder, unspecified; F41.0 Panic disorder [episodic paroxysmal anxiety]; R56.9 Unspecified convulsions; F17.210 Nicotine dependence, cigarettes, uncomplicated; Z88.0 Allergy status to penicillin; Z88.8 Allergy status to other drugs, medicaments and biological substances
CPT/HCPCS: 80048; 81003; 84702; 84999; 85027; 90839; 99281; 99285; G0480; J3411; J7030; J7042; J7050

== ENCOUNTER 2017-05-13 19:19 | Emergency (ER) | payer OTHER ==
[~2017-05-13] VITALS: Ht 157.5 cm; Wt 66.2 kg
[2017-05-14 01:42] LABS: BASOPHIL COUNT 0.1 K/uL (0-0.1); EOSINOPHIL (%) 0.7 % (0-5); EOSINOPHIL COUNT 0.1 K/uL (0-0.3); IMMATURE GRANULOCYTE (%) 0.3 % (0.0-0.7); INSTRUMENT ABS NEUTROPHIL CT 2.8 K/uL; LYMPHOCYTE COUNT 5.9 K/uL (1.0-2.8); MCH 34.1 PG (29.0-34.0); MCHC 33.9 G/DL (30.0-36.0); MCV 100.7 FL (83-99); MONOCYTE COUNT 0.6 K/uL (0-0.8); NEUTROPHIL (%) 30.2 % (45-76); NEUTROPHIL COUNT 2.8 K/uL (1.8-6.4); RBC DIS.WIDTH-CV 11.5 % (11.8-14.6); RBC DIS.WIDTH-SD 42.6 % (39-53); RED BLOOD COUNT 4.37 M/uL (3.80-5.20); WHITE BLOOD COUNT 9.5 K/uL (4.1-10.2)
[2017-05-14 01:54] LABS: CHLORIDE 108 mEq/L (99-109); POTASSIUM 3.7 mEq/L (3.7-5.4); SODIUM 144 mEq/L (136-147)
[2017-05-14 01:57] LABS: GLUCOSE 105 mg/dL (70-99)
[2017-05-14 01:58] LABS: ANION GAP 13 MEQ/L (2-14)
[2017-05-14 01:59] LABS: TOTAL BILIRUBIN 0.6 mg/dL (0.0-1.0)
[2017-05-14 02:00] LABS: ALKALINE PHOSPHATASE 52 IU/L (3-129); SERUM ETHYL ALCOHOL 270 mg/dL
[2017-05-14 02:01] LABS: GFR ESTIMATE (CALCULATED) > 59 mL/min/
[2017-05-14 02:02] LABS: UREA NITROGEN (BUN) 8 mg/dL (9-23)
[2017-05-14 02:48] LABS: HEMATOLOGY COMMENT 1 SN; PLAT.SUFFICIENCY ADEQUATE; PLATELET COUNT UNABLE TO REPORT K/uL (156-360)
[2017-05-14 04:03] LABS: ADD MIUA? YES; BILIRUBIN NEGATIVE; BLOOD NEGATIVE; COLOR YELLOW ((YELLOW)); GLUCOSE (STRIP) NEGATIVE; KETONES NEGATIVE; LEUKOCYTES NEGATIVE; NITRITE NEGATIVE; PROTEIN (STRIP) 100; SPECIFIC GRAVITY 1.019 (1.000-1.030)
[2017-05-14 04:05] LABS: INTERNAL CONTROL VALID? YES
[2017-05-14 04:07] LABS: BACTERIA RARE /HPF; EPITHELIAL CELLS RARE /HPF; HYALINE CASTS 0-5 /LPF; MUCUS 1+ /LPF; RED BLOOD CELLS 0-5 /HPF (0-5); UCUL ADDED? NO; WHITE BLOOD CELLS 0-5 /HPF (0-5)
[2017-05-14 04:38] LABS: AMPHETAMINE NEGATIVE (500 ng/mL); BARBITURATES NEGATIVE (200 ng/mL); BENZODIAZEPINES PRESUMPTIVE POSITIVE (150 ng/mL); COCAINE NEGATIVE (150 ng/mL); METHADONE NEGATIVE (200 ng/mL); METHAMPHETAMINE NEGATIVE (500 ng/mL); OPIATES (MORPHINE) NEGATIVE (100 ng/mL); OXYCODONE PRESUMPTIVE POSITIVE (100 ng/mL); PHENCYCLIDINE NEGATIVE (25 ng/mL); THC CANNABINOIDS NEGATIVE (50 ng/mL); TRICYCLIC ANTIDEPRESSANTS NEGATIVE (300 ng/mL)
[2017-05-14 04:39] LABS: ADD MEDTOX COMMENT Y; INTERNAL CONTROLS VALID? YES; PROPOXYPHENE NEGATIVE (300 ng/mL)
[2017-05-14 05:58] LABS: BENZODIAZEPINES, URINE SCREEN POSITIVE (200 ng/mL)
[2017-05-14 14:02] VITALS: BP 145/81
== END 2017-05-14 13:39 | disposition home or self-care (01) ==
LOC: EME 19:19
PROVIDERS: Emergency Medicine
DX: F10.129 Alcohol abuse with intoxication, unspecified (principal); F32.9 Major depressive disorder, single episode, unspecified; F41.9 Anxiety disorder, unspecified; F14.10 Cocaine abuse, uncomplicated; F13.99 Sedative, hypnotic or anxiolytic use, unspecified with unspecified sedative, hypnotic or anxiolytic-induced disorder; Y90.8 Blood alcohol level of 240 mg/100 ml or more; F43.10 Post-traumatic stress disorder, unspecified; Z59.0 Homelessness; R56.9 Unspecified convulsions; Z88.0 Allergy status to penicillin; Z88.6 Allergy status to analgesic agent; F17.200 Nicotine dependence, unspecified, uncomplicated
CPT/HCPCS: 80053; 81003; 84702 90; 84703; 84999; 85025; 85027; 90839; 99281; 99285; G0480

== ENCOUNTER 2017-05-17 16:36 | Emergency (ER) | payer OTHER ==
[~2017-05-17] VITALS: Ht 160 cm; Wt 66.6 kg
[2017-05-17 17:48] LABS: EOSINOPHIL (%) 1.5 % (0-5); EOSINOPHIL COUNT 0.1 K/uL (0-0.3); IMMATURE GRANULOCYTE (%) 0.3 % (0.0-0.7); INSTRUMENT ABS NEUTROPHIL CT 2.1 K/uL; LYMPHOCYTE COUNT 4.3 K/uL (1.0-2.8); MCH 33.6 PG (29.0-34.0); MCHC 33.5 G/DL (30.0-36.0); MCV 100.2 FL (83-99); MEAN PLAT.VOLUME 10.8 uM^3 (9.5-12.4); MONOCYTE (%) 4.5 % (3-12); MONOCYTE COUNT 0.3 K/uL (0-0.8); NEUTROPHIL (%) 30.6 % (45-76); NEUTROPHIL COUNT 2.1 K/uL (1.8-6.4); PLATELET COUNT 220 K/uL (156-360); RBC DIS.WIDTH-CV 11.3 % (11.8-14.6); RBC DIS.WIDTH-SD 42.2 % (39-53); RED BLOOD COUNT 4.79 M/uL (3.80-5.20); WHITE BLOOD COUNT 6.9 K/uL (4.1-10.2)
[2017-05-17 18:28] LABS: CHLORIDE 104 mEq/L (99-109); POTASSIUM 3.9 mEq/L (3.7-5.4); SODIUM 149 mEq/L (136-147)
[2017-05-17 18:30] LABS: GLUCOSE 90 mg/dL (70-99)
[2017-05-17 18:31] LABS: ANION GAP 18 MEQ/L (2-14)
[2017-05-17 18:33] LABS: SERUM ETHYL ALCOHOL 406 mg/dL
[2017-05-17 18:34] LABS: GFR ESTIMATE (CALCULATED) > 59 mL/min/
[2017-05-17 18:35] LABS: UREA NITROGEN (BUN) 7 mg/dL (9-23)
[2017-05-17 18:46] LABS: QUANTITATIVE HCG < 4.0 MIU/ML
[2017-05-18] MEDS ORDERED: LIBRIUM25 MG PO (06:34)
[2017-05-18 06:55] VITALS: BP 136/84
== END 2017-05-18 06:56 | disposition home or self-care (01) ==
LOC: EME 16:36
PROVIDERS: Emergency Medicine
DX: F10.129 Alcohol abuse with intoxication, unspecified (principal); E86.0 Dehydration; F32.9 Major depressive disorder, single episode, unspecified; F41.9 Anxiety disorder, unspecified; J02.9 Acute pharyngitis, unspecified; Y90.8 Blood alcohol level of 240 mg/100 ml or more; Z59.0 Homelessness; F43.10 Post-traumatic stress disorder, unspecified; R56.9 Unspecified convulsions; Z72.0 Tobacco use; Z88.0 Allergy status to penicillin; Z88.8 Allergy status to other drugs, medicaments and biological substances
CPT/HCPCS: 80048; 81003; 84702; 85025; 87651 90; 90839; 99281; 99285; G0480; J2060; J2405; J3411; J7030

== ENCOUNTER 2017-05-26 19:10 | Inpatient (IN) | payer OTHER ==
[~2017-05-26] VITALS: Ht 157.5 cm; Wt 62.6 kg
[2017-05-26 20:22] LABS: HEMATOCRIT 40.3 % (36.0-46.0); MCH 34.5 PG (29.0-34.0); MCHC 34.7 G/DL (30.0-36.0); MCV 99.3 FL (83-99); MEAN PLAT.VOLUME 10.4 uM^3 (9.5-12.4); PLATELET COUNT 186 K/uL (156-360); RBC DIS.WIDTH-CV 11.5 % (11.8-14.6); RBC DIS.WIDTH-SD 42.4 % (39-53); RED BLOOD COUNT 4.06 M/uL (3.80-5.20); WHITE BLOOD COUNT 6.2 K/uL (4.1-10.2)
[2017-05-26 20:25] LABS: CHLORIDE 104 mEq/L (99-109); POTASSIUM 3.8 mEq/L (3.7-5.4); SODIUM 143 mEq/L (136-147)
[2017-05-26 20:27] LABS: GLUCOSE 97 mg/dL (70-99)
[2017-05-26 20:28] LABS: ANION GAP 12 MEQ/L (2-14)
[2017-05-26 20:30] LABS: GFR ESTIMATE (CALCULATED) > 59 mL/min/; SERUM ETHYL ALCOHOL 367 mg/dL
[2017-05-26 20:32] LABS: UREA NITROGEN (BUN) 7 mg/dL (9-23)
[2017-05-26 20:34] LABS: SALICYLATE < 5.0 MG/DL (15-30)
[2017-05-26 20:41] LABS: QUANTITATIVE HCG < 4.0 MIU/ML
[2017-05-26 22:18] LABS: ADD MIUA? YES; BILIRUBIN NEGATIVE; BLOOD SMALL; COLOR YELLOW ((YELLOW)); GLUCOSE (STRIP) NEGATIVE; KETONES NEGATIVE; LEUKOCYTES TRACE; NITRITE NEGATIVE; PROTEIN (STRIP) 100; SPECIFIC GRAVITY 1.008 (1.000-1.030); UROBILINOGEN 0.2 MG/DL (0.2-1.0)
[2017-05-26 22:26] LABS: AMPHETAMINE NEGATIVE (500 ng/mL); BARBITURATES NEGATIVE (200 ng/mL); BENZODIAZEPINES PRESUMPTIVE POSITIVE (150 ng/mL); COCAINE NEGATIVE (150 ng/mL); INTERNAL CONTROLS VALID? YES; METHADONE NEGATIVE (200 ng/mL); METHAMPHETAMINE NEGATIVE (500 ng/mL); OPIATES (MORPHINE) NEGATIVE (100 ng/mL); OXYCODONE NEGATIVE (100 ng/mL); PHENCYCLIDINE NEGATIVE (25 ng/mL); PROPOXYPHENE NEGATIVE (300 ng/mL); THC CANNABINOIDS NEGATIVE (50 ng/mL); TRICYCLIC ANTIDEPRESSANTS NEGATIVE (300 ng/mL)
[2017-05-26 22:27] LABS: ADD MEDTOX COMMENT Y
[2017-05-26 22:30] LABS: BACTERIA RARE /HPF; EPITHELIAL CELLS 1+ /HPF; MUCUS TRACE /LPF; RED BLOOD CELLS 0-5 /HPF (0-5); WHITE BLOOD CELLS 0-5 /HPF (0-5)
[2017-05-26 22:56] LABS: BENZODIAZEPINES, URINE SCREEN POSITIVE (200 ng/mL)
[2017-05-27 11:20] VITALS: BP 138/95
[2017-05-27 11:26] VITALS: BP 138/95
[2017-05-27 15:57] VITALS: BP 155/94
[2017-05-28 00:36] VITALS: BP 130/81
[2017-05-28 07:56] VITALS: BP 127/88
[2017-05-28 11:18] VITALS: BP 114/59
[2017-05-28 15:28] VITALS: BP 117/74
[2017-05-28 15:29] VITALS: BP 109/65
[2017-05-28 17:54] VITALS: BP 107/67
[2017-05-29 08:03] VITALS: BP 101/61
[2017-05-29 13:33] VITALS: BP 117/73
[2017-05-29 16:23] VITALS: BP 115/64
[2017-05-30 07:43] VITALS: BP 100/63
[2017-05-30] MEDS ORDERED: QUETIAPINE FUMA50 MG PO (11:54)
[2017-05-30] MEDS ORDERED: Thiamine,Vitamin B1 PO (11:54)
[2017-05-30] MEDS ORDERED: FOLIC ACID1 MG PO (11:54)
== END 2017-05-30 13:44 | disposition home or self-care (01) | DRG 885 ==
LOC: EME → EDBD 19:10 → 1WEST 05-27 08:14 → EDOF 05-27 08:14 → ENRESERV 05-27 10:22 → ENRESERVTM 05-27 11:10 → 1WEST 05-27 11:18
PROVIDERS: Emergency Medicine; Physician Assistant
DX: F33.9 Major depressive disorder, recurrent, unspecified (principal); F10.239 Alcohol dependence with withdrawal, unspecified; F17.200 Nicotine dependence, unspecified, uncomplicated; R45.851 Suicidal ideations; Z59.0 Homelessness; Z88.6 Allergy status to analgesic agent; Z88.1 Allergy status to other antibiotic agents; Z88.0 Allergy status to penicillin; Z91.14 Patient's other noncompliance with medication regimen
CPT/HCPCS: 80048; 81003; 84702; 84999; 85027; 90839; 97150 GO; 97165 GO; 99281; 99285; G0480; J2060; J2405; J7030; Q0177; S0028

== ENCOUNTER 2017-06-13 18:21 | Emergency (ER) | payer OTHER ==
[~2017-06-13] VITALS: Ht 157.5 cm; Wt 67.8 kg
[2017-06-13 19:30] VITALS: BP 128/70
[2017-06-14] MEDS ORDERED: KEFLEX500 MG PO (00:03)
== END 2017-06-13 20:00 | disposition left against medical advice (07) ==
LOC: EME 18:21
DX: F10.129 Alcohol abuse with intoxication, unspecified (principal); Z53.21 Procedure and treatment not carried out due to patient leaving prior to being seen by health care provider

== ENCOUNTER 2017-06-13 21:35 | Inpatient (IN) | payer OTHER ==
[~2017-06-13] VITALS: Ht 157.5 cm; Wt 66.1 kg
[2017-06-14] MEDS ORDERED: KEFLEX500 MG PO (00:03)
[2017-06-14 01:58] LABS: HEMATOCRIT 35.1 % (36.0-46.0); HEMOGLOBIN 12.2 G/DL (11.9-15.5); MCH 34.1 PG (29.0-34.0); MCHC 34.8 G/DL (30.0-36.0); PLATELET COUNT 194 K/uL (156-360); RBC DIS.WIDTH-CV 11.8 % (11.8-14.6); RBC DIS.WIDTH-SD 42.7 % (39-53); RED BLOOD COUNT 3.58 M/uL (3.80-5.20)
[2017-06-14 02:07] LABS: CHLORIDE 105 mEq/L (99-109); POTASSIUM 3.2 mEq/L (3.7-5.4); SODIUM 140 mEq/L (136-147)
[2017-06-14 02:09] LABS: GLUCOSE 139 mg/dL (70-99)
[2017-06-14 02:12] LABS: SERUM ETHYL ALCOHOL 252 mg/dL
[2017-06-14 02:13] LABS: CREATININE 0.6 mg/dL (0.6-1.3); GFR ESTIMATE (CALCULATED) > 59 mL/min/
[2017-06-14 02:14] LABS: UREA NITROGEN (BUN) 10 mg/dL (9-23)
[2017-06-14 10:12] VITALS: BP 145/87
[2017-06-14 15:38] VITALS: BP 153/79
[2017-06-14 18:58] VITALS: BP 172/96
[2017-06-14 21:15] VITALS: BP 179/98
[2017-06-15 01:41] VITALS: BP 163/82
[2017-06-15 08:00] VITALS: BP 171/78
[2017-06-15 10:38] VITALS: BP 140/94
[2017-06-15 13:04] VITALS: BP 117/86
[2017-06-15 15:29] VITALS: BP 137/83
[2017-06-16 07:39] VITALS: BP 118/56
[2017-06-16 15:35] VITALS: BP 132/87
[2017-06-17 07:54] VITALS: BP 137/75
[2017-06-17 15:49] VITALS: BP 133/74
[2017-06-18 09:38] VITALS: BP 121/74
[2017-06-18 16:23] VITALS: BP 133/82
[2017-06-19 07:53] VITALS: BP 116/62
[2017-06-19 15:39] VITALS: BP 129/78
[2017-06-20 07:11] VITALS: BP 106/58
[2017-06-20] MEDS ORDERED: KEFLEX500 MG PO (09:23)
== END 2017-06-20 11:32 | disposition home or self-care (01) | DRG 885 ==
LOC: EME 21:35 → 1WEST 06-14 09:14 → EDOF 06-14 09:14 → 1WEST 06-14 09:14 → ENRESERV 06-14 09:42 → EDOF 06-14 09:46 → 1WEST 06-14 10:10
PROVIDERS: Physician Assistant
PROC: HZ2ZZZZ Detoxification Services for Substance Abuse Treatment (ICD-10-PCS; principal; 2017-06-14)
DX: F33.9 Major depressive disorder, recurrent, unspecified (principal); R45.851 Suicidal ideations; F17.210 Nicotine dependence, cigarettes, uncomplicated; F14.10 Cocaine abuse, uncomplicated; F41.9 Anxiety disorder, unspecified; F19.94 Other psychoactive substance use, unspecified with psychoactive substance-induced mood disorder; J02.9 Acute pharyngitis, unspecified; F10.229 Alcohol dependence with intoxication, unspecified; Y90.8 Blood alcohol level of 240 mg/100 ml or more; Z59.0 Homelessness; Z91.14 Patient's other noncompliance with medication regimen; Z56.0 Unemployment, unspecified; Z88.0 Allergy status to penicillin; Z88.1 Allergy status to other antibiotic agents; Z88.6 Allergy status to analgesic agent; Z81.8 Family history of other mental and behavioral disorders; Z81.1 Family history of alcohol abuse and dependence
CPT/HCPCS: 80048; 85027; 87651 90; 90839; 94640; 97150 GO; 97166 GO; 99281; 99284; G0480

== ENCOUNTER 2017-07-10 22:00 | Emergency (ER) | payer OTHER ==
[~2017-07-10] VITALS: Ht 157.5 cm; Wt 67.0 kg
[~2017-07-10 22:00] MED LIST changes: +KEFLEX500 MG PO
[2017-07-11 04:22] VITALS: BP 111/86
== END 2017-07-11 04:23 | disposition home or self-care (01) ==
LOC: EME 22:00
DX: F10.129 Alcohol abuse with intoxication, unspecified (principal); F17.200 Nicotine dependence, unspecified, uncomplicated; Z88.0 Allergy status to penicillin; Z88.1 Allergy status to other antibiotic agents; Z88.6 Allergy status to analgesic agent
CPT/HCPCS: 99281; 99283

== ENCOUNTER 2017-07-15 18:12 | Emergency (ER) | payer OTHER ==
[~2017-07-15] VITALS: Ht 157.5 cm; Wt 68.3 kg
[2017-07-15 21:03] LABS: HEMATOCRIT 37.3 % (36.0-46.0); HEMOGLOBIN 13.3 G/DL (11.9-15.5); MCH 33.4 PG (29.0-34.0); MCHC 35.7 G/DL (30.0-36.0); MCV 93.7 FL (83-99); PLATELET COUNT 239 K/uL (156-360); RBC DIS.WIDTH-CV 11.4 % (11.8-14.6); RBC DIS.WIDTH-SD 39.1 % (39-53); RED BLOOD COUNT 3.98 M/uL (3.80-5.20); WHITE BLOOD COUNT 8.4 K/uL (4.1-10.2)
[2017-07-15 21:11] LABS: CHLORIDE 108 mEq/L (99-109); POTASSIUM 3.6 mEq/L (3.7-5.4); SODIUM 142 mEq/L (136-147)
[2017-07-15 21:13] LABS: GLUCOSE 96 mg/dL (70-99)
[2017-07-15 21:14] LABS: TOTAL PROTEIN 6.9 g/dL (6.4-8.3)
[2017-07-15 21:15] LABS: TOTAL BILIRUBIN 0.2 mg/dL (0.0-1.0)
[2017-07-15 21:16] LABS: SERUM ETHYL ALCOHOL 370 mg/dL
[2017-07-15 21:17] LABS: ALKALINE PHOSPHATASE 57 IU/L (3-129); CREATININE 0.6 mg/dL (0.6-1.3); GFR ESTIMATE (CALCULATED) > 59 mL/min/
[2017-07-15 21:18] LABS: UREA NITROGEN (BUN) 9 mg/dL (9-23)
[2017-07-15 21:19] LABS: AST (GOT) 31 IU/L (2-34)
[2017-07-15 21:20] LABS: ALT (GPT) 17 IU/L (3-49)
[2017-07-15 21:58] LABS: AMPHETAMINE NEGATIVE (500 ng/mL); BARBITURATES NEGATIVE (200 ng/mL); BENZODIAZEPINES PRESUMPTIVE POSITIVE (150 ng/mL); BUPRENORPHINE NEGATIVE (10 ng/mL); COCAINE NEGATIVE (150 ng/mL); METHADONE NEGATIVE (200 ng/mL); METHAMPHETAMINE NEGATIVE (500 ng/mL); OPIATES (MORPHINE) NEGATIVE (100 ng/mL); OXYCODONE NEGATIVE (100 ng/mL); PHENCYCLIDINE NEGATIVE (25 ng/mL); PROPOXYPHENE NEGATIVE (300 ng/mL); THC CANNABINOIDS NEGATIVE (50 ng/mL); TRICYCLIC ANTIDEPRESSANTS PRESUMPTIVE POSITIVE (300 ng/mL)
[2017-07-15 22:36] LABS: BENZODIAZEPINES, URINE SCREEN Negative (200 ng/mL)
[2017-07-16] MEDS ORDERED: THIAMINE HCL100 MG PO (11:58)
[2017-07-16] MEDS ORDERED: LIBRIUM25 MG PO (11:58)
[2017-07-16 12:43] VITALS: BP 169/92
== END 2017-07-16 13:01 | disposition home or self-care (01) ==
LOC: EME 18:12
PROVIDERS: Emergency Medicine
DX: F10.121 Alcohol abuse with intoxication delirium (principal); Y90.8 Blood alcohol level of 240 mg/100 ml or more; F33.9 Major depressive disorder, recurrent, unspecified; F14.20 Cocaine dependence, uncomplicated; Z59.0 Homelessness; F43.10 Post-traumatic stress disorder, unspecified; R56.9 Unspecified convulsions; F17.200 Nicotine dependence, unspecified, uncomplicated; Z88.0 Allergy status to penicillin; Z88.1 Allergy status to other antibiotic agents; Z88.6 Allergy status to analgesic agent
CPT/HCPCS: 80053; 81025; 84999; 85027; 90839; 99281; 99284; G0480

== ENCOUNTER 2017-07-18 15:37 | Emergency (ER) | payer OTHER ==
[~2017-07-18] VITALS: Ht 157.5 cm; Wt 66.7 kg
[2017-07-18 16:40] LABS: HEMATOCRIT 39.4 % (36.0-46.0); HEMOGLOBIN 13.8 G/DL (11.9-15.5); MCH 33.3 PG (29.0-34.0); MCV 95.2 FL (83-99); PLATELET COUNT 214 K/uL (156-360); RBC DIS.WIDTH-CV 11.8 % (11.8-14.6); RBC DIS.WIDTH-SD 41.1 % (39-53); RED BLOOD COUNT 4.14 M/uL (3.80-5.20); WHITE BLOOD COUNT 7.3 K/uL (4.1-10.2)
[2017-07-18 16:48] LABS: CHLORIDE 108 mEq/L (99-109); POTASSIUM 3.3 mEq/L (3.7-5.4); SODIUM 142 mEq/L (136-147)
[2017-07-18 16:50] LABS: GLUCOSE 137 mg/dL (70-99)
[2017-07-18 16:54] LABS: CREATININE 0.6 mg/dL (0.6-1.3); GFR ESTIMATE (CALCULATED) > 59 mL/min/
[2017-07-18 16:55] LABS: UREA NITROGEN (BUN) 14 mg/dL (9-23)
[2017-07-18 17:02] LABS: TROP-I INTERPRETATION NEGATIVE; TROPONIN-I < 0.01 ng/mL (0.0-0.30)
[2017-07-18 18:20] LABS: AMPHETAMINE NEGATIVE (500 ng/mL); BARBITURATES NEGATIVE (200 ng/mL); BENZODIAZEPINES PRESUMPTIVE POSITIVE (150 ng/mL); BUPRENORPHINE NEGATIVE (10 ng/mL); COCAINE NEGATIVE (150 ng/mL); METHADONE NEGATIVE (200 ng/mL); METHAMPHETAMINE NEGATIVE (500 ng/mL); OPIATES (MORPHINE) NEGATIVE (100 ng/mL); OXYCODONE NEGATIVE (100 ng/mL); PHENCYCLIDINE NEGATIVE (25 ng/mL); PROPOXYPHENE NEGATIVE (300 ng/mL); THC CANNABINOIDS NEGATIVE (50 ng/mL); TRICYCLIC ANTIDEPRESSANTS NEGATIVE (300 ng/mL)
[2017-07-18 18:20] LABS: SERUM ETHYL ALCOHOL 347 mg/dL
[2017-07-18 18:49] LABS: BENZODIAZEPINES, URINE SCREEN POSITIVE (200 ng/mL)
[2017-07-19 03:17] VITALS: BP 132/71
[2017-07-19] MEDS ORDERED: LIBRIUM25 MG PO (03:18)
[2017-07-19] MEDS ORDERED: ATARAX,VISTARIL25 MG PO (03:18)
== END 2017-07-19 03:37 | disposition home or self-care (01) ==
LOC: EME 15:37
PROVIDERS: Emergency Medicine
DX: F10.229 Alcohol dependence with intoxication, unspecified (principal); F33.9 Major depressive disorder, recurrent, unspecified; F41.9 Anxiety disorder, unspecified; R45.851 Suicidal ideations; R07.9 Chest pain, unspecified; R10.9 Unspecified abdominal pain; Z91.81 History of falling; Y90.8 Blood alcohol level of 240 mg/100 ml or more; F17.200 Nicotine dependence, unspecified, uncomplicated
CPT/HCPCS: 71046; 80048; 84484; 84999; 85027; 90839; 93005; 99281; 99285; G0480; Q0177

== ENCOUNTER 2017-07-28 21:38 | Emergency (ER) | payer OTHER ==
[~2017-07-28] VITALS: Ht 160 cm; Wt 68.1 kg
[2017-07-29 01:26] LABS: HEMATOCRIT 37.4 % (36.0-46.0); HEMOGLOBIN 12.7 G/DL (11.9-15.5); MCV 97.1 FL (83-99); PLATELET COUNT 222 K/uL (156-360); RBC DIS.WIDTH-CV 12.3 % (11.8-14.6); RBC DIS.WIDTH-SD 43.8 % (39-53); RED BLOOD COUNT 3.85 M/uL (3.80-5.20); WHITE BLOOD COUNT 9.4 K/uL (4.1-10.2)
[2017-07-29 01:40] LABS: ALBUMIN 4.3 g/dL (3.2-4.8); CHLORIDE 102 mEq/L (99-109); POTASSIUM 3.8 mEq/L (3.7-5.4); SODIUM 143 mEq/L (136-147)
[2017-07-29 01:43] LABS: GLUCOSE 77 mg/dL (70-99)
[2017-07-29 01:45] LABS: TOTAL BILIRUBIN 0.4 mg/dL (0.0-1.0)
[2017-07-29 01:46] LABS: SERUM ETHYL ALCOHOL 296 mg/dL
[2017-07-29 01:47] LABS: ALKALINE PHOSPHATASE 51 IU/L (3-129); CREATININE 0.6 mg/dL (0.6-1.3); GFR ESTIMATE (CALCULATED) > 59 mL/min/
[2017-07-29 01:48] LABS: AST (GOT) 29 IU/L (2-34); UREA NITROGEN (BUN) 12 mg/dL (9-23)
[2017-07-29 01:50] LABS: ACETAMINOPHEN (TYLENOL) < 10 mcg/mL (10-30); ALT (GPT) 17 IU/L (3-49); SALICYLATE < 5.0 MG/DL (15-30)
[2017-07-29 01:51] LABS: LIPASE 60 U/L (1.0-51.0)
[2017-07-29 02:10] LABS: APPEARANCE CLEAR ((CLEAR)); BILIRUBIN NEGATIVE; BLOOD NEGATIVE; COLOR YELLOW ((YELLOW)); GLUCOSE (STRIP) NEGATIVE; KETONES NEGATIVE; LEUKOCYTES TRACE; NITRITE NEGATIVE; PROTEIN (STRIP) 30; SPECIFIC GRAVITY 1.015 (1.000-1.030); UROBILINOGEN 0.2 MG/DL (0.2-1.0)
[2017-07-29 02:13] LABS: BACTERIA RARE /HPF; EPITHELIAL CELLS RARE /HPF; MUCUS TRACE /LPF; RED BLOOD CELLS 0-5 /HPF (0-5); WHITE BLOOD CELLS 0-5 /HPF (0-5)
[2017-07-29 02:17] LABS: AMPHETAMINE NEGATIVE (500 ng/mL); BARBITURATES NEGATIVE (200 ng/mL); BENZODIAZEPINES PRESUMPTIVE POSITIVE (150 ng/mL); BUPRENORPHINE NEGATIVE (10 ng/mL); COCAINE NEGATIVE (150 ng/mL); METHADONE NEGATIVE (200 ng/mL); METHAMPHETAMINE NEGATIVE (500 ng/mL); OPIATES (MORPHINE) NEGATIVE (100 ng/mL); OXYCODONE NEGATIVE (100 ng/mL); PHENCYCLIDINE NEGATIVE (25 ng/mL); PROPOXYPHENE NEGATIVE (300 ng/mL); THC CANNABINOIDS NEGATIVE (50 ng/mL); TRICYCLIC ANTIDEPRESSANTS NEGATIVE (300 ng/mL)
[2017-07-29 02:50] LABS: BENZODIAZEPINES, URINE SCREEN POSITIVE (200 ng/mL)
[2017-07-29 11:24] VITALS: BP 140/83
== END 2017-07-29 11:25 | disposition home or self-care (01) ==
LOC: EME 21:38
PROVIDERS: Physician Assistant
DX: F10.229 Alcohol dependence with intoxication, unspecified (principal); R45.851 Suicidal ideations; S00.93XA Contusion of unspecified part of head, initial encounter; W22.8XXA Striking against or struck by other objects, initial encounter; J02.9 Acute pharyngitis, unspecified; F33.9 Major depressive disorder, recurrent, unspecified; Z91.14 Patient's other noncompliance with medication regimen; Z76.5 Malingerer [conscious simulation]; F17.200 Nicotine dependence, unspecified, uncomplicated; Y90.8 Blood alcohol level of 240 mg/100 ml or more
CPT/HCPCS: 80053; 81003; 83690; 84999; 85027; 87651 90; 90839; 99281; 99284; G0480; Q0177

== ENCOUNTER 2017-07-29 16:59 | Emergency (ER) | payer OTHER ==
[~2017-07-29] VITALS: Ht 157.5 cm; Wt 60.9 kg
[2017-07-29 17:28] VITALS: BP 108/67
== END 2017-07-29 19:48 | disposition left against medical advice (07) ==
LOC: EME 16:59
DX: R51 Headache (principal); F10.29 Alcohol dependence with unspecified alcohol-induced disorder; Z53.21 Procedure and treatment not carried out due to patient leaving prior to being seen by health care provider

== ENCOUNTER 2017-08-01 19:09 | Emergency (ER) | payer OTHER ==
[~2017-08-01] VITALS: Ht 157.5 cm; Wt 70.2 kg
[2017-08-01] MEDS ORDERED: PREDNISONE20 MG PO (20:36)
[2017-08-01] MEDS ORDERED: XYLOCAINE VISC100 ML PO (20:36)
[2017-08-01 20:54] VITALS: BP 129/71
== END 2017-08-01 20:54 | disposition home or self-care (01) ==
LOC: EME 19:09
DX: J02.8 Acute pharyngitis due to other specified organisms (principal); F41.9 Anxiety disorder, unspecified; F17.200 Nicotine dependence, unspecified, uncomplicated; Z88.0 Allergy status to penicillin; Z88.6 Allergy status to analgesic agent; Z88.1 Allergy status to other antibiotic agents
CPT/HCPCS: 87651 90; 99281; 99284; J7512; Q0177

== ENCOUNTER 2017-08-03 18:12 | Emergency (ER) | payer OTHER ==
[~2017-08-03] VITALS: Ht 157.5 cm; Wt 68.1 kg
[~2017-08-03 18:12] MED LIST changes: +PREDNISONE20 MG PO; +XYLOCAINE VISC100 ML PO
[2017-08-04 00:07] LABS: HEMATOCRIT 35.1 % (36.0-46.0); HEMOGLOBIN 12.2 G/DL (11.9-15.5); MCH 33.9 PG (29.0-34.0); MCHC 34.8 G/DL (30.0-36.0); MCV 97.5 FL (83-99); PLATELET COUNT 231 K/uL (156-360); RBC DIS.WIDTH-CV 12.6 % (11.8-14.6); RBC DIS.WIDTH-SD 45.1 % (39-53)
[2017-08-04 00:17] LABS: CHLORIDE 104 mEq/L (99-109); POTASSIUM 3.6 mEq/L (3.7-5.4); SODIUM 141 mEq/L (136-147)
[2017-08-04 00:19] LABS: GLUCOSE 80 mg/dL (70-99)
[2017-08-04 00:22] LABS: SERUM ETHYL ALCOHOL 225 mg/dL
[2017-08-04 00:23] LABS: CREATININE 0.7 mg/dL (0.6-1.3); GFR ESTIMATE (CALCULATED) > 59 mL/min/; UREA NITROGEN (BUN) 12 mg/dL (9-23)
[2017-08-04 00:27] LABS: APPEARANCE SL.HAZY ((CLEAR)); BILIRUBIN NEGATIVE; BLOOD NEGATIVE; COLOR YELLOW ((YELLOW)); GLUCOSE (STRIP) NEGATIVE; KETONES NEGATIVE; LEUKOCYTES SMALL; NITRITE NEGATIVE; PROTEIN (STRIP) 30; SPECIFIC GRAVITY 1.026 (1.000-1.030); UROBILINOGEN 0.2 MG/DL (0.2-1.0)
[2017-08-04 00:35] LABS: BACTERIA RARE /HPF; EPITHELIAL CELLS 1+ /HPF; MUCUS TRACE /LPF; RED BLOOD CELLS 0-5 /HPF (0-5); UCUL ADDED? NO; WHITE BLOOD CELLS 0-5 /HPF (0-5)
[2017-08-04 00:36] LABS: AMPHETAMINE NEGATIVE (500 ng/mL); BARBITURATES NEGATIVE (200 ng/mL); BENZODIAZEPINES PRESUMPTIVE POSITIVE (150 ng/mL); BUPRENORPHINE NEGATIVE (10 ng/mL); COCAINE NEGATIVE (150 ng/mL); METHADONE NEGATIVE (200 ng/mL); METHAMPHETAMINE NEGATIVE (500 ng/mL); OPIATES (MORPHINE) NEGATIVE (100 ng/mL); OXYCODONE NEGATIVE (100 ng/mL); PHENCYCLIDINE NEGATIVE (25 ng/mL); PROPOXYPHENE NEGATIVE (300 ng/mL); THC CANNABINOIDS NEGATIVE (50 ng/mL); TRICYCLIC ANTIDEPRESSANTS NEGATIVE (300 ng/mL)
[2017-08-04 01:44] LABS: BENZODIAZEPINES, URINE SCREEN POSITIVE (200 ng/mL)
[2017-08-04] MEDS ORDERED: LIBRIUM25 MG PO (05:29)
[2017-08-04 07:14] VITALS: BP 112/75
== END 2017-08-04 06:30 | disposition home or self-care (01) ==
LOC: EME 18:12
PROVIDERS: Nurse Practitioner Family
DX: F33.9 Major depressive disorder, recurrent, unspecified (principal); F10.129 Alcohol abuse with intoxication, unspecified; R45.851 Suicidal ideations; J02.9 Acute pharyngitis, unspecified; R22.0 Localized swelling, mass and lump, head; R51 Headache; Y90.7 Blood alcohol level of 200-239 mg/100 ml; F17.200 Nicotine dependence, unspecified, uncomplicated
CPT/HCPCS: 80048; 81003; 84999; 85027; 87502; 87651 90; 90839; 99281; 99284; G0480

== ENCOUNTER 2017-08-07 20:17 | Emergency (ER) | payer OTHER | END 2017-08-07 21:01 | disposition left against medical advice (07) | LOC: EME 20:17 | DX: R07.0 Pain in throat (principal); R51 Headache; Z53.21 Procedure and treatment not carried out due to patient leaving prior to being seen by health care provider ==

== ENCOUNTER 2017-09-03 18:13 | Emergency (ER) | payer OTHER ==
[~2017-09-03] VITALS: Ht 157.5 cm; Wt 64.5 kg
[2017-09-03 20:56] LABS: BASOPHIL (%) 1.2 % (0-1); BASOPHIL COUNT 0.1 K/uL (0-0.1); EOSINOPHIL (%) 0.4 % (0-5); HEMOGLOBIN 13.3 G/DL (11.9-15.5); IMMATURE GRANULOCYTE (%) 0.3 % (0.0-0.7); LYMPHOCYTE COUNT 2.2 K/uL (1.0-2.8); MCH 33.7 PG (29.0-34.0); MCV 96.2 FL (83-99); MONOCYTE (%) 4.8 % (3-12); MONOCYTE COUNT 0.4 K/uL (0-0.8); NEUTROPHIL (%) 64.3 % (45-76); NEUTROPHIL COUNT 4.8 K/uL (1.8-6.4); PLATELET COUNT 314 K/uL (156-360); RBC DIS.WIDTH-CV 12.6 % (11.8-14.6); RBC DIS.WIDTH-SD 45.2 % (39-53); RED BLOOD COUNT 3.95 M/uL (3.80-5.20); WHITE BLOOD COUNT 7.5 K/uL (4.1-10.2)
[2017-09-03 20:58] LABS: CHLORIDE 103 mEq/L (99-109); POTASSIUM 3.5 mEq/L (3.7-5.4); SODIUM 141 mEq/L (136-147)
[2017-09-03 20:59] LABS: GLUCOSE 156 mg/dL (70-99)
[2017-09-03 21:03] LABS: CREATININE 0.6 mg/dL (0.6-1.3); GFR ESTIMATE (CALCULATED) > 59 mL/min/; SERUM ETHYL ALCOHOL 369 mg/dL
[2017-09-03 21:04] LABS: UREA NITROGEN (BUN) 8 mg/dL (9-23)
[2017-09-03 21:15] LABS: AMPHETAMINE NEGATIVE (500 ng/mL); BARBITURATES NEGATIVE (200 ng/mL); BENZODIAZEPINES PRESUMPTIVE POSITIVE (150 ng/mL); BUPRENORPHINE NEGATIVE (10 ng/mL); COCAINE NEGATIVE (150 ng/mL); METHADONE NEGATIVE (200 ng/mL); METHAMPHETAMINE NEGATIVE (500 ng/mL); OPIATES (MORPHINE) NEGATIVE (100 ng/mL); OXYCODONE NEGATIVE (100 ng/mL); PHENCYCLIDINE NEGATIVE (25 ng/mL); PROPOXYPHENE NEGATIVE (300 ng/mL); THC CANNABINOIDS NEGATIVE (50 ng/mL); TRICYCLIC ANTIDEPRESSANTS NEGATIVE (300 ng/mL)
[2017-09-03 21:45] LABS: BENZODIAZEPINES, URINE SCREEN Negative (200 ng/mL)
[2017-09-04 08:22] VITALS: BP 118/66
== END 2017-09-04 08:22 | disposition home or self-care (01) ==
LOC: EME 18:13
PROVIDERS: Emergency Medicine
DX: F10.129 Alcohol abuse with intoxication, unspecified (principal); F33.9 Major depressive disorder, recurrent, unspecified; Y90.8 Blood alcohol level of 240 mg/100 ml or more; F17.200 Nicotine dependence, unspecified, uncomplicated; Z88.0 Allergy status to penicillin
CPT/HCPCS: 80048; 84999; 85025; 90839; 99281; 99285; G0480; J2060

== ENCOUNTER 2017-09-13 15:47 | Inpatient (IN) | payer OTHER ==
[~2017-09-13] VITALS: Ht 157.5 cm; Wt 65.1 kg
[2017-09-13 16:25] LABS: HEMATOCRIT 38.5 % (36.0-46.0); HEMOGLOBIN 13.5 G/DL (11.9-15.5); MCH 33.7 PG (29.0-34.0); MCHC 35.1 G/DL (30.0-36.0); PLATELET COUNT 259 K/uL (156-360); RBC DIS.WIDTH-CV 12.2 % (11.8-14.6); RBC DIS.WIDTH-SD 43.7 % (39-53); RED BLOOD COUNT 4.01 M/uL (3.80-5.20); WHITE BLOOD COUNT 7.2 K/uL (4.1-10.2)
[2017-09-13 16:32] LABS: CHLORIDE 103 mEq/L (99-109); POTASSIUM 3.6 mEq/L (3.7-5.4); SODIUM 141 mEq/L (136-147)
[2017-09-13 16:34] LABS: GLUCOSE 78 mg/dL (70-99)
[2017-09-13 16:37] LABS: SERUM ETHYL ALCOHOL 228 mg/dL
[2017-09-13 16:38] LABS: CREATININE 0.6 mg/dL (0.6-1.3); GFR ESTIMATE (CALCULATED) > 59 mL/min/
[2017-09-13 16:39] LABS: UREA NITROGEN (BUN) 7 mg/dL (9-23)
[2017-09-13 16:47] LABS: QUANTITATIVE HCG < 4.0 MIU/ML
[2017-09-13 18:42] LABS: ALBUMIN 4.5 g/dL (3.2-4.8)
[2017-09-13 18:43] LABS: MAGNESIUM 1.4 mg/dL (1.3-2.7)
[2017-09-13] MEDS ORDERED: PAXIL30 MG PO (18:43)
[2017-09-13] MEDS ORDERED: TRAZODONE HCL50 MG PO (18:43)
[2017-09-13] MEDS ORDERED: CENTRUM ADULTS1 EACH PO (18:44)
[2017-09-13 18:45] LABS: TOTAL PROTEIN 8.2 g/dL (6.4-8.3)
[2017-09-13 18:47] LABS: TOTAL BILIRUBIN 0.6 mg/dL (0.0-1.0)
[2017-09-13 18:48] LABS: ALKALINE PHOSPHATASE 59 IU/L (3-129)
[2017-09-13 18:50] LABS: AST (GOT) 133 IU/L (2-34); DIRECT BILIRUBIN 0.3 mg/dL (0.0-0.3)
[2017-09-13 18:51] LABS: ALT (GPT) 41 IU/L (3-49); CREATINE KINASE 187 IU/L (1-294); LIPASE 33 U/L (1.0-51.0)
[2017-09-13 22:19] VITALS: BP 158/82
[2017-09-13 22:35] LABS: APPEARANCE CLEAR ((CLEAR)); BILIRUBIN NEGATIVE; BLOOD SMALL; COLOR YELLOW ((YELLOW)); GLUCOSE (STRIP) NEGATIVE; KETONES 5; LEUKOCYTES NEGATIVE; NITRITE NEGATIVE; PROTEIN (STRIP) NEGATIVE; SPECIFIC GRAVITY 1.014 (1.000-1.030); UROBILINOGEN 0.2 MG/DL (0.2-1.0)
[2017-09-13 22:45] LABS: BACTERIA RARE /HPF; EPITHELIAL CELLS RARE /HPF; HYALINE CASTS 0-5 /LPF; MUCUS 1+ /LPF; RED BLOOD CELLS 0-5 /HPF (0-5); UCUL ADDED? NO; WHITE BLOOD CELLS 0-5 /HPF (0-5)
[2017-09-13 23:40] VITALS: BP 157/89
[2017-09-14] VITALS (7 sets, daily range): BP systolic 138–174; BP diastolic 73–100
[2017-09-14 06:15] LABS: ALBUMIN 3.9 G/DL (3.2-4.8); ALKALINE PHOSPHATASE 42 IU/L (3-129); ALT (GPT) 29 IU/L (3-49); AST (GOT) 74 IU/L (2-34); CHLORIDE 99 MEQ/L (99-109); CREATININE 0.4 MG/DL (0.6-1.3); GFR ESTIMATE (CALCULATED) > 59 mL/min/; GLUCOSE 93 mg/dL (70-99); MAGNESIUM 1.4 mg/dl (1.3-2.7); POTASSIUM 3.3 MEQ/L (3.7-5.4); SODIUM 137 MEQ/L (136-147); TOTAL BILIRUBIN 0.7 MG/DL (0.0-1.0); TOTAL PROTEIN 7.1 G/DL (6.4-8.3); UREA NITROGEN (BUN) 5 mg/dL (9-23)
[2017-09-15 04:17] VITALS: BP 154/91
[2017-09-15 05:55] LABS: HEMATOCRIT 36.8 % (36.0-46.0); HEMOGLOBIN 12.3 G/DL (11.9-15.5); MCH 32.8 PG (29.0-34.0); MCHC 33.4 G/DL (30.0-36.0); MCV 98.1 FL (83-99); PLATELET COUNT 225 K/uL (156-360); RBC DIS.WIDTH-CV 12.3 % (11.8-14.6); RBC DIS.WIDTH-SD 44.6 % (39-53); RED BLOOD COUNT 3.75 M/uL (3.80-5.20); WHITE BLOOD COUNT 5.5 K/uL (4.1-10.2)
[2017-09-15 06:13] LABS: ALBUMIN 3.7 G/DL (3.2-4.8); ALKALINE PHOSPHATASE 36 IU/L (3-129); ALT (GPT) 21 IU/L (3-49); CHLORIDE 105 MEQ/L (99-109); CREATININE 0.4 MG/DL (0.6-1.3); GFR ESTIMATE (CALCULATED) > 59 mL/min/; GLUCOSE 110 mg/dL (70-99); MAGNESIUM 1.4 mg/dl (1.3-2.7); PHOSPHORUS 3.6 mg/dL (2.5-4.9); POTASSIUM 3.9 MEQ/L (3.7-5.4); SODIUM 136 MEQ/L (136-147); TOTAL BILIRUBIN 0.7 MG/DL (0.0-1.0); TOTAL PROTEIN 6.5 G/DL (6.4-8.3); UREA NITROGEN (BUN) 6 mg/dL (9-23)
[2017-09-15 06:15] LABS: AST (GOT) 37 IU/L (2-34)
[2017-09-15 08:43] VITALS: BP 165/84
[2017-09-15 11:35] VITALS: BP 167/92
[2017-09-15 16:30] VITALS: BP 139/99
[2017-09-15 19:39] VITALS: BP 148/84
[2017-09-15 23:05] VITALS: BP 149/86
[2017-09-16 04:28] VITALS: BP 136/93
[2017-09-16] MEDS ORDERED: CHLORDIAZEPOXID25 MG PO (12:00)
[2017-09-16] MEDS ORDERED: NICOTINE PATCH1 EAC2 TD (12:00)
[2017-09-16] MEDS ORDERED: TRAMADOL HCL50 MG PO (12:00)
[2017-09-16] MEDS ORDERED: FOLIC ACID1 MG PO (12:00)
[2017-09-16] MEDS ORDERED: THIAMINE HCL100 MG PO (12:00)
== END 2017-09-16 13:50 | disposition home or self-care (01) | DRG 101 ==
LOC: EME 15:47 → 3EAST 20:17 → EDOF 20:17 → ENRESERV 20:22 → 3EAST 22:08
PROVIDERS: Family Medicine; Hospitalist
DX: R56.9 Unspecified convulsions (principal); E87.6 Hypokalemia; F10.239 Alcohol dependence with withdrawal, unspecified; E83.42 Hypomagnesemia; F17.210 Nicotine dependence, cigarettes, uncomplicated; F32.9 Major depressive disorder, single episode, unspecified; F43.10 Post-traumatic stress disorder, unspecified; G89.29 Other chronic pain
CPT/HCPCS: 80048; 80053; 80076; 81003; 82550; 83690; 83735; 84100; 84702; 85027; 99281; 99285; G0480; J1650; J2060; J2405; J3411; J3475; J7030

== ENCOUNTER 2017-10-06 11:42 | Inpatient (IN) | payer OTHER ==
[~2017-10-06] VITALS: Ht 157.5 cm; Wt 65.5 kg
[~2017-10-06 11:42] MED LIST changes: +CENTRUM ADULTS1 EACH PO; +CHLORDIAZEPOXID25 MG PO; +NICOTINE PATCH1 EAC2 TD; +TRAMADOL HCL50 MG PO
[2017-10-06 12:20] LABS: BASOPHIL (%) 0.4 % (0-1); EOSINOPHIL (%) 1.1 % (0-5); EOSINOPHIL COUNT 0.1 K/uL (0-0.3); HEMATOCRIT 40.1 % (36.0-46.0); HEMOGLOBIN 14.1 G/DL (11.9-15.5); IMMATURE GRANULOCYTE (%) 0.3 % (0.0-0.7); LYMPHOCYTE (%) 21.2 % (15-42); LYMPHOCYTE COUNT 1.5 K/uL (1.0-2.8); MCH 33.2 PG (29.0-34.0); MCHC 35.2 G/DL (30.0-36.0); MCV 94.4 FL (83-99); MONOCYTE (%) 6.5 % (3-12); MONOCYTE COUNT 0.5 K/uL (0-0.8); NEUTROPHIL (%) 70.5 % (45-76); PLATELET COUNT 191 K/uL (156-360); RBC DIS.WIDTH-CV 11.7 % (11.8-14.6); RBC DIS.WIDTH-SD 40.9 % (39-53); RED BLOOD COUNT 4.25 M/uL (3.80-5.20)
[2017-10-06 12:30] LABS: CHLORIDE 97 mEq/L (99-109); POTASSIUM 3.6 mEq/L (3.7-5.4); SODIUM 137 mEq/L (136-147)
[2017-10-06 12:31] LABS: ALBUMIN 4.6 g/dL (3.2-4.8)
[2017-10-06 12:33] LABS: GLUCOSE 82 mg/dL (70-99); TOTAL PROTEIN 8.3 g/dL (6.4-8.3)
[2017-10-06 12:35] LABS: TOTAL BILIRUBIN 0.8 mg/dL (0.0-1.0)
[2017-10-06 12:36] LABS: SERUM ETHYL ALCOHOL 49 mg/dL
[2017-10-06 12:37] LABS: ALKALINE PHOSPHATASE 70 IU/L (3-129); CREATININE 0.6 mg/dL (0.6-1.3); GFR ESTIMATE (CALCULATED) > 59 mL/min/
[2017-10-06 12:38] LABS: AST (GOT) 108 IU/L (2-34); UREA NITROGEN (BUN) 7 mg/dL (9-23)
[2017-10-06 12:40] LABS: ALT (GPT) 45 IU/L (3-49); LIPASE 40 U/L (1.0-51.0)
[2017-10-06 12:51] LABS: APPEARANCE CLEAR ((CLEAR)); BILIRUBIN NEGATIVE; BLOOD NEGATIVE; COLOR YELLOW ((YELLOW)); GLUCOSE (STRIP) NEGATIVE; KETONES 5; LEUKOCYTES NEGATIVE; NITRITE NEGATIVE; PROTEIN (STRIP) 30; SPECIFIC GRAVITY 1.014 (1.000-1.030); UROBILINOGEN 0.2 MG/DL (0.2-1.0)
[2017-10-06 13:01] LABS: AMPHETAMINE NEGATIVE (500 ng/mL); BARBITURATES NEGATIVE (200 ng/mL); BENZODIAZEPINES PRESUMPTIVE POSITIVE (150 ng/mL); BUPRENORPHINE NEGATIVE (10 ng/mL); COCAINE NEGATIVE (150 ng/mL); METHADONE NEGATIVE (200 ng/mL); METHAMPHETAMINE NEGATIVE (500 ng/mL); OPIATES (MORPHINE) NEGATIVE (100 ng/mL); OXYCODONE NEGATIVE (100 ng/mL); PHENCYCLIDINE NEGATIVE (25 ng/mL); PROPOXYPHENE NEGATIVE (300 ng/mL); THC CANNABINOIDS NEGATIVE (50 ng/mL); TRICYCLIC ANTIDEPRESSANTS NEGATIVE (300 ng/mL)
[2017-10-06 13:36] LABS: BENZODIAZEPINES, URINE SCREEN POSITIVE (200 ng/mL)
[2017-10-06 20:17] VITALS: BP 162/84
[2017-10-06 23:16] VITALS: BP 181/104
[2017-10-07 06:02] LABS: HEMATOCRIT 42.5 % (36.0-46.0); HEMOGLOBIN 14.4 G/DL (11.9-15.5); MCH 32.2 PG (29.0-34.0); MCHC 33.9 G/DL (30.0-36.0); MCV 95.1 FL (83-99); PLATELET COUNT 200 K/uL (156-360); RBC DIS.WIDTH-CV 11.5 % (11.8-14.6); RBC DIS.WIDTH-SD 40.5 % (39-53); RED BLOOD COUNT 4.47 M/uL (3.80-5.20); WHITE BLOOD COUNT 6.4 K/uL (4.1-10.2)
[2017-10-07 06:31] LABS: ALBUMIN 4.4 G/DL (3.2-4.8); ALKALINE PHOSPHATASE 60 IU/L (3-129); ALT (GPT) 30 IU/L (3-49); AST (GOT) 51 IU/L (2-34); CHLORIDE 98 MEQ/L (99-109); CREATININE 0.4 MG/DL (0.6-1.3); GFR ESTIMATE (CALCULATED) > 59 mL/min/; MAGNESIUM 1.5 mg/dl (1.3-2.7); POTASSIUM 3.3 MEQ/L (3.7-5.4); SODIUM 134 MEQ/L (136-147); TOTAL BILIRUBIN 1.1 MG/DL (0.0-1.0); TOTAL PROTEIN 7.5 G/DL (6.4-8.3); UREA NITROGEN (BUN) 7 mg/dL (9-23)
[2017-10-07 06:34] LABS: GLUCOSE 105 mg/dL (70-99)
[2017-10-07 07:27] VITALS: BP 182/106
[2017-10-07 11:30] VITALS: BP 159/80
[2017-10-07 16:45] VITALS: BP 152/83
[2017-10-07 19:26] VITALS: BP 150/92
[2017-10-07 23:50] VITALS: BP 127/78
[2017-10-08 04:29] VITALS: BP 150/88
[2017-10-08 06:48] LABS: CHLORIDE 102 MEQ/L (99-109); CREATININE 0.5 MG/DL (0.6-1.3); GFR ESTIMATE (CALCULATED) > 59 mL/min/; GLUCOSE 93 mg/dL (70-99); SODIUM 137 MEQ/L (136-147); UREA NITROGEN (BUN) 15 mg/dL (9-23)
[2017-10-08 06:49] LABS: MAGNESIUM 1.8 mg/dl (1.3-2.7); POTASSIUM 4.2 MEQ/L (3.7-5.4)
[2017-10-08 07:49] VITALS: BP 128/84
[2017-10-08 11:24] VITALS: BP 127/78
[2017-10-08 16:33] VITALS: BP 164/86
[2017-10-08 23:30] VITALS: BP 142/81
[2017-10-09 07:11] VITALS: BP 126/73
[2017-10-09 15:16] VITALS: BP 129/76
[2017-10-09 23:56] VITALS: BP 138/77
[2017-10-10 07:31] VITALS: BP 127/77
[2017-10-10] MEDS ORDERED: CHLORDIAZEPOXID25 MG PO (08:05)
[2017-10-10] MEDS ORDERED: FOLIC ACID1 MG PO (08:05)
[2017-10-10] MEDS ORDERED: METRONIDAZOLE500 MG PO (08:05)
[2017-10-10] MEDS ORDERED: Thiamine,Vitamin B1 PO (08:05)
[2017-10-10] MEDS ORDERED: CEPHALEXIN250 MG PO (08:05)
[2017-10-10] MEDS ORDERED: MAG-OXIDE400 MG PO (08:05)
[2017-10-10] MEDS ORDERED: TYLENOL REGULA325 MG PO (08:05)
[2017-10-10] MEDS ORDERED: NICOTINE PATCH1 EAC2 TD (08:05)
== END 2017-10-10 12:05 | disposition home or self-care (01) | DRG 897 ==
LOC: EME 11:42 → 5SOUTH 15:41 → EDOF 15:41 → ENRESERV 15:44 → 5SOUTH 19:47
PROVIDERS: Emergency Medicine; Internal Medicine
DX: F10.239 Alcohol dependence with withdrawal, unspecified (principal); F33.9 Major depressive disorder, recurrent, unspecified; R56.9 Unspecified convulsions; E83.42 Hypomagnesemia; E87.6 Hypokalemia; F41.0 Panic disorder [episodic paroxysmal anxiety]; K04.7 Periapical abscess without sinus; F19.10 Other psychoactive substance abuse, uncomplicated; F43.10 Post-traumatic stress disorder, unspecified; Y90.2 Blood alcohol level of 40-59 mg/100 ml; F17.200 Nicotine dependence, unspecified, uncomplicated; Z88.0 Allergy status to penicillin; Z91.19 Patient's noncompliance with other medical treatment and regimen; Z86.19 Personal history of other infectious and parasitic diseases; Z59.0 Homelessness
CPT/HCPCS: 80048; 80053; 81003; 82140; 83690; 83735; 84999; 85025; 85027; 93005; 99281; 99285; G0480; J1650; J2060; J2405; J3475; J7030

== ENCOUNTER 2017-10-19 23:23 | Emergency (ER) | payer OTHER ==
[~2017-10-19] VITALS: Ht 165.1 cm; Wt 62.4 kg
[~2017-10-19 23:23] MED LIST changes: +CEPHALEXIN250 MG PO; +MAG-OXIDE400 MG PO; +TYLENOL REGULA325 MG PO
[2017-10-20 04:10] LABS: HEMATOCRIT 37.8 % (36.0-46.0); HEMOGLOBIN 12.8 G/DL (11.9-15.5); MCH 33.2 PG (29.0-34.0); MCHC 33.9 G/DL (30.0-36.0); MCV 98.2 FL (83-99); RBC DIS.WIDTH-CV 11.9 % (11.8-14.6); RED BLOOD COUNT 3.85 M/uL (3.80-5.20); WHITE BLOOD COUNT 5.9 K/uL (4.1-10.2)
[2017-10-20 04:13] LABS: PLATELET COUNT 302 K/uL (156-360)
[2017-10-20 04:18] LABS: CHLORIDE 107 mEq/L (99-109); POTASSIUM 3.6 mEq/L (3.7-5.4); SODIUM 147 mEq/L (136-147)
[2017-10-20 04:20] LABS: GLUCOSE 85 mg/dL (70-99)
[2017-10-20 04:24] LABS: CREATININE 0.6 mg/dL (0.6-1.3); GFR ESTIMATE (CALCULATED) > 59 mL/min/
[2017-10-20 04:25] LABS: UREA NITROGEN (BUN) 8 mg/dL (9-23)
[2017-10-20 04:32] LABS: QUANTITATIVE HCG < 4.0 MIU/ML
[2017-10-20] MEDS ORDERED: NAPROSYN500 MG PO (05:52)
[2017-10-20 07:47] LABS: SERUM ETHYL ALCOHOL 376 mg/dL
[2017-10-20 16:03] VITALS: BP 110/78
== END 2017-10-20 16:37 | disposition home or self-care (01) ==
LOC: EME 23:23
PROVIDERS: Emergency Medicine
DX: T74.11XA Adult physical abuse, confirmed, initial encounter (principal); S00.83XA Contusion of other part of head, initial encounter; Y04.0XXA Assault by unarmed brawl or fight, initial encounter; Y07.03 Male partner, perpetrator of maltreatment and neglect; F33.9 Major depressive disorder, recurrent, unspecified; R45.851 Suicidal ideations; F10.129 Alcohol abuse with intoxication, unspecified; F43.10 Post-traumatic stress disorder, unspecified; F17.200 Nicotine dependence, unspecified, uncomplicated; Z88.0 Allergy status to penicillin; Z88.1 Allergy status to other antibiotic agents; Z88.6 Allergy status to analgesic agent
CPT/HCPCS: 70486; 80048; 84702; 85027; 90839; 99281; 99284; G0480

== ENCOUNTER 2017-10-31 19:39 | Emergency (ER) | payer OTHER ==
[~2017-10-31] VITALS: Ht 157.5 cm; Wt 60.7 kg
[2017-10-31 21:45] LABS: HEMATOCRIT 40.6 % (36.0-46.0); HEMOGLOBIN 14.1 G/DL (11.9-15.5); MCH 33.5 PG (29.0-34.0); MCHC 34.7 G/DL (30.0-36.0); MCV 96.4 FL (83-99); RBC DIS.WIDTH-CV 12.2 % (11.8-14.6); RBC DIS.WIDTH-SD 43.4 % (39-53); RED BLOOD COUNT 4.21 M/uL (3.80-5.20); WHITE BLOOD COUNT 7.2 K/uL (4.1-10.2)
[2017-10-31 21:52] LABS: CHLORIDE 103 mEq/L (99-109); MAGNESIUM 1.7 mg/dL (1.3-2.7); POTASSIUM 3.6 mEq/L (3.7-5.4); SODIUM 146 mEq/L (136-147)
[2017-10-31 21:54] LABS: GLUCOSE 83 mg/dL (70-99)
[2017-10-31 21:57] LABS: SERUM ETHYL ALCOHOL 364 mg/dL
[2017-10-31 21:58] LABS: CREATININE 0.6 mg/dL (0.6-1.3); GFR ESTIMATE (CALCULATED) > 59 mL/min/; UREA NITROGEN (BUN) 11 mg/dL (9-23)
[2017-10-31 22:02] LABS: BASOPHIL (%) 0.4 % (0-1); EOSINOPHIL (%) 0.6 % (0-5); IMMATURE GRANULOCYTE (%) 0.3 % (0.0-0.7); MONOCYTE (%) 5.2 % (3-12); MONOCYTE COUNT 0.4 K/uL (0-0.8); NEUTROPHIL (%) 50.5 % (45-76); NEUTROPHIL COUNT 3.5 K/uL (1.8-6.4)
[2017-10-31 22:29] LABS: PLAT.SUFFICIENCY LOW; PLATELET COUNT 122 K/uL (156-360)
[2017-10-31 23:23] LABS: APPEARANCE CLOUDY ((CLEAR)); BILIRUBIN NEGATIVE; BLOOD LARGE; COLOR AMBER ((YELLOW)); GLUCOSE (STRIP) NEGATIVE; KETONES NEGATIVE; LEUKOCYTES SMALL; NITRITE NEGATIVE; PROTEIN (STRIP) >=500; SPECIFIC GRAVITY 1.028 (1.000-1.030)
[2017-10-31 23:34] LABS: BACTERIA NONE SEEN /HPF; EPITHELIAL CELLS 3+ /HPF; MUCUS 3+ /LPF; RED BLOOD CELLS TNTC /HPF (0-5); UCUL ADDED? YES; WHITE BLOOD CELLS 20-30 /HPF (0-5)
[2017-11-01 02:44] LABS: AMPHETAMINE NEGATIVE (500 ng/mL); BARBITURATES NEGATIVE (200 ng/mL); BENZODIAZEPINES PRESUMPTIVE POSITIVE (150 ng/mL); BUPRENORPHINE NEGATIVE (10 ng/mL); COCAINE NEGATIVE (150 ng/mL); METHADONE NEGATIVE (200 ng/mL); METHAMPHETAMINE NEGATIVE (500 ng/mL); OPIATES (MORPHINE) NEGATIVE (100 ng/mL); OXYCODONE NEGATIVE (100 ng/mL); PHENCYCLIDINE NEGATIVE (25 ng/mL); PROPOXYPHENE NEGATIVE (300 ng/mL); THC CANNABINOIDS NEGATIVE (50 ng/mL); TRICYCLIC ANTIDEPRESSANTS NEGATIVE (300 ng/mL)
[2017-11-01 04:51] LABS: BENZODIAZEPINES, URINE SCREEN POSITIVE (200 ng/mL)
[2017-11-01] MEDS ORDERED: ATIVAN2 MG PO (05:20)
[2017-11-01] MEDS ORDERED: ZOFRAN ODT4 MG PO (05:20)
[2017-11-01] MEDS ORDERED: BACTRIM,SEPT1 TABLET PO (05:20)
[2017-11-01] MEDS ORDERED: VITAMIN B-1100 MG PO (05:22)
[2017-11-01 11:09] VITALS: BP 168/89
== END 2017-11-01 11:20 | disposition home or self-care (01) ==
LOC: EME 19:39
PROVIDERS: Emergency Medicine
DX: F10.239 Alcohol dependence with withdrawal, unspecified (principal); F10.229 Alcohol dependence with intoxication, unspecified; L02.01 Cutaneous abscess of face; F33.1 Major depressive disorder, recurrent, moderate; F43.10 Post-traumatic stress disorder, unspecified; F41.9 Anxiety disorder, unspecified; F17.200 Nicotine dependence, unspecified, uncomplicated; Y90.8 Blood alcohol level of 240 mg/100 ml or more; Z86.69 Personal history of other diseases of the nervous system and sense organs; Z91.81 History of falling; Z88.0 Allergy status to penicillin; Z88.6 Allergy status to analgesic agent; Z88.8 Allergy status to other drugs, medicaments and biological substances
CPT/HCPCS: 80048; 81003; 83735; 84999; 85025; 87086; 90839; 99281; 99285; G0480; J2060; J2405; J7040; J7120

== ENCOUNTER 2017-11-08 18:36 | Emergency (ER) | payer OTHER ==
[~2017-11-08] VITALS: Ht 157.5 cm; Wt 63.5 kg
[~2017-11-08 18:36] MED LIST changes: +VITAMIN B-1100 MG PO
[2017-11-08] MEDS ORDERED: B-1100 MG PO (21:32)
[2017-11-08] MEDS ORDERED: ATIVAN2 MG PO (21:32)
[2017-11-08 22:06] VITALS: BP 142/73
== END 2017-11-08 22:08 | disposition home or self-care (01) ==
LOC: EME 18:36
DX: F10.10 Alcohol abuse, uncomplicated (principal); F17.200 Nicotine dependence, unspecified, uncomplicated; F32.9 Major depressive disorder, single episode, unspecified; F43.10 Post-traumatic stress disorder, unspecified; F41.9 Anxiety disorder, unspecified; Z88.0 Allergy status to penicillin; Z88.6 Allergy status to analgesic agent
CPT/HCPCS: 99281; 99285

== ENCOUNTER 2017-11-11 23:07 | Emergency (ER) | payer OTHER ==
[~2017-11-11] VITALS: Ht 162.6 cm; Wt 60.5 kg
[~2017-11-11 23:07] MED LIST changes: +B-1100 MG PO
[2017-11-11 23:50] LABS: HEMATOCRIT 38.8 % (36.0-46.0); HEMOGLOBIN 13.7 G/DL (11.9-15.5); MCH 34.4 PG (29.0-34.0); MCHC 35.3 G/DL (30.0-36.0); MCV 97.5 FL (83-99); RBC DIS.WIDTH-CV 12.6 % (11.8-14.6); RBC DIS.WIDTH-SD 45.3 % (39-53); RED BLOOD COUNT 3.98 M/uL (3.80-5.20); WHITE BLOOD COUNT 5.9 K/uL (4.1-10.2)
[2017-11-11 23:51] LABS: PLATELET COUNT 198 K/uL (156-360)
[2017-11-12 00:03] LABS: ALBUMIN 4.7 g/dL (3.2-4.8); CHLORIDE 105 mEq/L (99-109); POTASSIUM 3.5 mEq/L (3.7-5.4); SODIUM 146 mEq/L (136-147)
[2017-11-12 00:06] LABS: GLUCOSE 95 mg/dL (70-99)
[2017-11-12 00:08] LABS: TOTAL BILIRUBIN 0.3 mg/dL (0.0-1.0)
[2017-11-12 00:09] LABS: ALKALINE PHOSPHATASE 57 IU/L (3-129); SERUM ETHYL ALCOHOL 459 mg/dL
[2017-11-12 00:10] LABS: CREATININE 0.6 mg/dL (0.6-1.3); GFR ESTIMATE (CALCULATED) > 59 mL/min/
[2017-11-12 00:11] LABS: AST (GOT) 91 IU/L (2-34); UREA NITROGEN (BUN) 14 mg/dL (9-23)
[2017-11-12 00:12] LABS: ALT (GPT) 33 IU/L (3-49)
[2017-11-12 07:10] VITALS: BP 127/78
== END 2017-11-12 08:15 | disposition home or self-care (01) ==
LOC: EME → EDBD 23:07 → EME 23:07
PROVIDERS: Emergency Medicine
DX: F10.129 Alcohol abuse with intoxication, unspecified (principal); Y90.8 Blood alcohol level of 240 mg/100 ml or more; F32.9 Major depressive disorder, single episode, unspecified; F17.200 Nicotine dependence, unspecified, uncomplicated; F43.10 Post-traumatic stress disorder, unspecified; Z88.0 Allergy status to penicillin; Z88.6 Allergy status to analgesic agent; Z86.69 Personal history of other diseases of the nervous system and sense organs
CPT/HCPCS: 80053; 85027; 99281; 99284; G0480

== ENCOUNTER 2017-11-14 18:35 | Emergency (ER) | payer OTHER ==
[~2017-11-14] VITALS: Ht 158.8 cm; Wt 61.1 kg
[2017-11-14 18:41] VITALS: BP 116/73
[2017-11-14 19:20] LABS: HEMATOCRIT 41.4 % (36.0-46.0); HEMOGLOBIN 14.6 G/DL (11.9-15.5); MCH 34.4 PG (29.0-34.0); MCHC 35.3 G/DL (30.0-36.0); MCV 97.6 FL (83-99); RBC DIS.WIDTH-CV 12.4 % (11.8-14.6); RBC DIS.WIDTH-SD 44.5 % (39-53); RED BLOOD COUNT 4.24 M/uL (3.80-5.20); WHITE BLOOD COUNT 8.3 K/uL (4.1-10.2)
[2017-11-14 19:22] LABS: AMPHETAMINE NEGATIVE (500 ng/mL); BARBITURATES NEGATIVE (200 ng/mL); BENZODIAZEPINES PRESUMPTIVE POSITIVE (150 ng/mL); BUPRENORPHINE NEGATIVE (10 ng/mL); COCAINE NEGATIVE (150 ng/mL); METHADONE NEGATIVE (200 ng/mL); METHAMPHETAMINE NEGATIVE (500 ng/mL); OPIATES (MORPHINE) NEGATIVE (100 ng/mL); OXYCODONE NEGATIVE (100 ng/mL); PHENCYCLIDINE NEGATIVE (25 ng/mL); PROPOXYPHENE NEGATIVE (300 ng/mL); THC CANNABINOIDS NEGATIVE (50 ng/mL); TRICYCLIC ANTIDEPRESSANTS PRESUMPTIVE POSITIVE (300 ng/mL)
[2017-11-14 19:22] LABS: PLATELET COUNT 259 K/uL (156-360)
[2017-11-14 19:29] LABS: CHLORIDE 102 mEq/L (99-109); POTASSIUM 3.7 mEq/L (3.7-5.4); SODIUM 145 mEq/L (136-147)
[2017-11-14 19:31] LABS: GLUCOSE 89 mg/dL (70-99)
[2017-11-14 19:34] LABS: CREATININE 0.7 mg/dL (0.6-1.3); GFR ESTIMATE (CALCULATED) > 59 mL/min/; SERUM ETHYL ALCOHOL 392 mg/dL
[2017-11-14 19:35] LABS: UREA NITROGEN (BUN) 12 mg/dL (9-23)
[2017-11-14 20:02] LABS: BENZODIAZEPINES, URINE SCREEN POSITIVE (200 ng/mL)
== END 2017-11-15 00:22 | disposition left against medical advice (07) ==
LOC: EME 18:35
DX: R51 Headache (principal); F10.239 Alcohol dependence with withdrawal, unspecified; Z53.21 Procedure and treatment not carried out due to patient leaving prior to being seen by health care provider
CPT/HCPCS: 80048; 84999; 85027; G0480

== ENCOUNTER 2018-01-05 14:05 | Emergency (ER) | payer OTHER ==
[~2018-01-05] VITALS: Ht 157.5 cm; Wt 66.8 kg
[2018-01-05 15:43] LABS: HEMATOCRIT 34.7 % (36.0-46.0); HEMOGLOBIN 12.2 G/DL (11.9-15.5); MCH 32.5 PG (29.0-34.0); MCHC 35.2 G/DL (30.0-36.0); MCV 92.5 FL (83-99); PLATELET COUNT 345 K/uL (156-360); RBC DIS.WIDTH-CV 11.8 % (11.8-14.6); RBC DIS.WIDTH-SD 39.8 % (39-53); RED BLOOD COUNT 3.75 M/uL (3.80-5.20); WHITE BLOOD COUNT 10.3 K/uL (4.1-10.2)
[2018-01-05 15:51] LABS: APPEARANCE CLEAR ((CLEAR)); BILIRUBIN NEGATIVE; BLOOD NEGATIVE; COLOR YELLOW ((YELLOW)); GLUCOSE (STRIP) NEGATIVE; KETONES NEGATIVE; LEUKOCYTES NEGATIVE; NITRITE NEGATIVE; PROTEIN (STRIP) NEGATIVE; SPECIFIC GRAVITY 1.006 (1.000-1.030); UROBILINOGEN 0.2 MG/DL (0.2-1.0)
[2018-01-05 15:55] LABS: CHLORIDE 107 mEq/L (99-109); POTASSIUM 3.9 mEq/L (3.7-5.4); SODIUM 143 mEq/L (136-147)
[2018-01-05 15:57] LABS: GLUCOSE 100 mg/dL (70-99)
[2018-01-05 16:01] LABS: CREATININE 0.7 mg/dL (0.6-1.3); GFR ESTIMATE (CALCULATED) > 59 mL/min/
[2018-01-05 16:02] LABS: UREA NITROGEN (BUN) 8 mg/dL (9-23)
[2018-01-05 16:10] LABS: QUANTITATIVE HCG < 4.0 MIU/ML
[2018-01-05 16:36] LABS: SERUM ETHYL ALCOHOL 175 mg/dL
[2018-01-05 16:41] LABS: AMPHETAMINE NEGATIVE (500 ng/mL); BARBITURATES NEGATIVE (200 ng/mL); BENZODIAZEPINES PRESUMPTIVE POSITIVE (150 ng/mL); BUPRENORPHINE NEGATIVE (10 ng/mL); COCAINE NEGATIVE (150 ng/mL); METHADONE NEGATIVE (200 ng/mL); METHAMPHETAMINE NEGATIVE (500 ng/mL); OPIATES (MORPHINE) NEGATIVE (100 ng/mL); OXYCODONE PRESUMPTIVE POSITIVE (100 ng/mL); PHENCYCLIDINE NEGATIVE (25 ng/mL); PROPOXYPHENE NEGATIVE (300 ng/mL); THC CANNABINOIDS NEGATIVE (50 ng/mL); TRICYCLIC ANTIDEPRESSANTS NEGATIVE (300 ng/mL)
[2018-01-05 17:19] LABS: BENZODIAZEPINES, URINE SCREEN Negative (200 ng/mL)
[2018-01-05 19:37] VITALS: BP 106/56
== END 2018-01-05 19:58 | disposition home or self-care (01) ==
LOC: EME 14:05
PROVIDERS: Nurse Practitioner Family
DX: F10.129 Alcohol abuse with intoxication, unspecified (principal); F11.10 Opioid abuse, uncomplicated; R45.851 Suicidal ideations; F41.8 Other specified anxiety disorders; Y90.6 Blood alcohol level of 120-199 mg/100 ml; F33.1 Major depressive disorder, recurrent, moderate; F43.10 Post-traumatic stress disorder, unspecified; F17.200 Nicotine dependence, unspecified, uncomplicated; Z86.69 Personal history of other diseases of the nervous system and sense organs; Z88.0 Allergy status to penicillin; Z88.6 Allergy status to analgesic agent
CPT/HCPCS: 80048; 81003; 84702; 84999; 85027; 90839; 99281; 99285; G0480

== ENCOUNTER 2018-01-29 09:32 | Emergency (ER) | payer OTHER ==
[~2018-01-29] VITALS: Ht 157.5 cm; Wt 64.9 kg
[2018-01-29 10:28] LABS: ALBUMIN 4.3 g/dL (3.2-4.8)
[2018-01-29 10:29] LABS: CHLORIDE 106 mEq/L (99-109); POTASSIUM 3.2 mEq/L (3.7-5.4); SODIUM 144 mEq/L (136-147)
[2018-01-29 10:31] LABS: GLUCOSE 105 mg/dL (70-99); TOTAL PROTEIN 7.6 g/dL (6.4-8.3)
[2018-01-29 10:33] LABS: TOTAL BILIRUBIN 0.6 mg/dL (0.0-1.0)
[2018-01-29 10:34] LABS: ALKALINE PHOSPHATASE 66 IU/L (3-129)
[2018-01-29 10:35] LABS: CREATININE 0.6 mg/dL (0.6-1.3); GFR ESTIMATE (CALCULATED) > 59 mL/min/
[2018-01-29 10:36] LABS: AST (GOT) 34 IU/L (2-34); DIRECT BILIRUBIN 0.2 mg/dL (0.0-0.3); UREA NITROGEN (BUN) 9 mg/dL (9-23)
[2018-01-29 10:38] LABS: ALT (GPT) 17 IU/L (3-49); LIPASE 22 U/L (1.0-51.0)
[2018-01-29 10:41] LABS: TROP-I INTERPRETATION NEGATIVE; TROPONIN-I < 0.01 ng/mL (0.0-0.30)
[2018-01-29 10:42] LABS: HEMATOCRIT 35.3 % (36.0-46.0); HEMOGLOBIN 12.4 G/DL (11.9-15.5); MCH 31.8 PG (29.0-34.0); MCHC 35.1 G/DL (30.0-36.0); MCV 90.5 FL (83-99); RBC DIS.WIDTH-SD 39.7 % (39-53); WHITE BLOOD COUNT 5.8 K/uL (4.1-10.2)
[2018-01-29 11:25] LABS: PLATELET COUNT 185 K/uL (156-360)
[2018-01-29 12:25] VITALS: BP 135/87
== END 2018-01-29 12:39 | disposition home or self-care (01) ==
LOC: EME 09:32
PROVIDERS: Emergency Medicine
DX: R07.89 Other chest pain (principal); F10.129 Alcohol abuse with intoxication, unspecified; F41.9 Anxiety disorder, unspecified; F43.10 Post-traumatic stress disorder, unspecified; F32.9 Major depressive disorder, single episode, unspecified; F17.200 Nicotine dependence, unspecified, uncomplicated; Z87.898 Personal history of other specified conditions; Z88.6 Allergy status to analgesic agent; Z88.0 Allergy status to penicillin; Z88.8 Allergy status to other drugs, medicaments and biological substances
CPT/HCPCS: 71045; 80048; 80076; 83690; 83880; 84484; 85027; 93005; 99281; 99284

== ENCOUNTER 2018-01-30 17:40 | Emergency (ER) | payer OTHER ==
[~2018-01-30] VITALS: Ht 157.5 cm; Wt 51.6 kg
[2018-01-30 23:05] VITALS: BP 153/94
== END 2018-01-30 23:05 | disposition home or self-care (01) ==
LOC: EME 17:40
DX: F10.129 Alcohol abuse with intoxication, unspecified (principal); F43.10 Post-traumatic stress disorder, unspecified; F32.9 Major depressive disorder, single episode, unspecified; F41.9 Anxiety disorder, unspecified; F17.200 Nicotine dependence, unspecified, uncomplicated; Z88.0 Allergy status to penicillin; Z88.6 Allergy status to analgesic agent; Z88.8 Allergy status to other drugs, medicaments and biological substances
CPT/HCPCS: 99281; 99284

== ENCOUNTER 2018-02-04 14:43 | Inpatient (IN) | payer OTHER ==
[~2018-02-04] VITALS: Ht 210.8 cm; Wt 65.1 kg
[2018-02-04 15:39] LABS: HEMATOCRIT 32.8 % (36.0-46.0); HEMOGLOBIN 11.7 G/DL (11.9-15.5); MCHC 35.7 G/DL (30.0-36.0); RBC DIS.WIDTH-SD 38.5 % (39-53); RED BLOOD COUNT 3.77 M/uL (3.80-5.20)
[2018-02-04 15:44] LABS: POTASSIUM 2.7 mEq/L (3.7-5.4)
[2018-02-04 15:46] LABS: GLUCOSE 173 mg/dL (70-99)
[2018-02-04 15:47] LABS: CHLORIDE 95 mEq/L (99-109); SODIUM 135 mEq/L (136-147)
[2018-02-04 15:49] LABS: SERUM ETHYL ALCOHOL < 10 mg/dL
[2018-02-04 15:50] LABS: CREATININE 0.6 mg/dL (0.6-1.3); GFR ESTIMATE (CALCULATED) > 59 mL/min/
[2018-02-04 15:51] LABS: UREA NITROGEN (BUN) 5 mg/dL (9-23)
[2018-02-04 15:59] LABS: QUANTITATIVE HCG < 4.0 MIU/ML
[2018-02-04 16:17] LABS: PLAT.SUFFICIENCY ADEQUATE
[2018-02-04 16:18] LABS: PLATELET COUNT 127 K/uL (156-360)
[2018-02-04] MEDS ORDERED: VISTARIL25 MG PO (16:43)
[2018-02-04] MEDS ORDERED: GABAPENTIN100 MG PO (16:43)
[2018-02-04] MEDS ORDERED: SEROQUEL200 MG PO (16:43)
[2018-02-04 17:09] LABS: ALBUMIN 4.2 g/dL (3.2-4.8)
[2018-02-04 17:10] LABS: MAGNESIUM 1.2 mg/dL (1.3-2.7)
[2018-02-04 17:12] LABS: TOTAL PROTEIN 7.5 g/dL (6.4-8.3)
[2018-02-04 17:14] LABS: TOTAL BILIRUBIN 0.8 mg/dL (0.0-1.0)
[2018-02-04 17:15] LABS: ALKALINE PHOSPHATASE 67 IU/L (3-129); PHOSPHORUS 2.8 mg/dL (2.5-4.9)
[2018-02-04 17:17] LABS: DIRECT BILIRUBIN 0.4 mg/dL (0.0-0.3)
[2018-02-04 17:21] LABS: ALT (GPT) 43 IU/L (3-49); AST (GOT) 62 IU/L (2-34)
[2018-02-04 17:29] VITALS: BP 166/85
[2018-02-04 18:28] LABS: TROP-I INTERPRETATION NEGATIVE; TROPONIN-I < 0.01 ng/mL (0.0-0.30)
[2018-02-04 19:43] VITALS: BP 145/78
[2018-02-05 00:08] VITALS: BP 173/91
[2018-02-05 01:10] LABS: TROP-I INTERPRETATION NEGATIVE; TROPONIN-I < 0.01 ng/mL (0.0-0.30)
[2018-02-05 06:47] LABS: HEMATOCRIT 34.1 % (36.0-46.0); HEMOGLOBIN 11.4 G/DL (11.9-15.5); MCH 29.9 PG (29.0-34.0); MCHC 33.4 G/DL (30.0-36.0); MCV 89.5 FL (83-99); PLATELET COUNT 151 K/uL (156-360); RBC DIS.WIDTH-SD 39.3 % (39-53); RED BLOOD COUNT 3.81 M/uL (3.80-5.20); WHITE BLOOD COUNT 6.3 K/uL (4.1-10.2)
[2018-02-05 07:05] LABS: ALBUMIN 4.1 G/DL (3.2-4.8); ALKALINE PHOSPHATASE 55 IU/L (3-129); ALT (GPT) 31 IU/L (3-49); AST (GOT) 36 IU/L (2-34); CHLORIDE 101 MEQ/L (99-109); CREATININE 0.4 MG/DL (0.6-1.3); GFR ESTIMATE (CALCULATED) > 59 mL/min/; GLUCOSE 137 mg/dL (70-99); SODIUM 136 MEQ/L (136-147); TOTAL BILIRUBIN 0.6 MG/DL (0.0-1.0); TOTAL PROTEIN 6.7 G/DL (6.4-8.3); UREA NITROGEN (BUN) 4 mg/dL (9-23)
[2018-02-05 08:10] VITALS: BP 163/94
[2018-02-05 12:13] VITALS: BP 181/102
[2018-02-05 15:55] VITALS: BP 147/83
[2018-02-05 19:18] VITALS: BP 155/78
[2018-02-05 21:11] LABS: BASOPHIL (%) 0.2 % (0-1); EOSINOPHIL (%) 1.2 % (0-5); EOSINOPHIL COUNT 0.1 K/uL (0-0.3); HEMATOCRIT 32.4 % (36.0-46.0); HEMOGLOBIN 11.2 G/DL (11.9-15.5); IMMATURE GRANULOCYTE (%) 0.6 % (0.0-0.7); LYMPHOCYTE (%) 40.7 % (15-42); LYMPHOCYTE COUNT 3.3 K/uL (1.0-2.8); MCH 30.8 PG (29.0-34.0); MCHC 34.6 G/DL (30.0-36.0); MONOCYTE (%) 5.5 % (3-12); MONOCYTE COUNT 0.4 K/uL (0-0.8); NEUTROPHIL (%) 51.8 % (45-76); NEUTROPHIL COUNT 4.1 K/uL (1.8-6.4); PLATELET COUNT 140 K/uL (156-360); RBC DIS.WIDTH-CV 12.4 % (11.8-14.6); RED BLOOD COUNT 3.64 M/uL (3.80-5.20)
[2018-02-05 21:41] LABS: CHLORIDE 102 MEQ/L (99-109); CREATININE 0.6 MG/DL (0.6-1.3); GFR ESTIMATE (CALCULATED) > 59 mL/min/; GLUCOSE 122 mg/dL (70-99); POTASSIUM 3.2 MEQ/L (3.7-5.4); SODIUM 135 MEQ/L (136-147); UREA NITROGEN (BUN) 6 mg/dL (9-23)
[2018-02-05 21:43] LABS: MAGNESIUM 0.9 mg/dl (1.3-2.7)
[2018-02-06 00:19] VITALS: BP 151/91
[2018-02-06 04:28] VITALS: BP 139/78
[2018-02-06 06:48] LABS: BASOPHIL (%) 0.3 % (0-1); EOSINOPHIL (%) 1.8 % (0-5); EOSINOPHIL COUNT 0.2 K/uL (0-0.3); HEMATOCRIT 37.5 % (36.0-46.0); HEMOGLOBIN 12.5 G/DL (11.9-15.5); IMMATURE GRANULOCYTE (%) 0.7 % (0.0-0.7); LYMPHOCYTE (%) 36.3 % (15-42); LYMPHOCYTE COUNT 3.7 K/uL (1.0-2.8); MCH 30.1 PG (29.0-34.0); MCHC 33.3 G/DL (30.0-36.0); MCV 90.4 FL (83-99); MONOCYTE (%) 5.2 % (3-12); MONOCYTE COUNT 0.5 K/uL (0-0.8); NEUTROPHIL (%) 55.7 % (45-76); NEUTROPHIL COUNT 5.7 K/uL (1.8-6.4); PLATELET COUNT 166 K/uL (156-360); RBC DIS.WIDTH-CV 12.5 % (11.8-14.6); RBC DIS.WIDTH-SD 40.7 % (39-53); RED BLOOD COUNT 4.15 M/uL (3.80-5.20); WHITE BLOOD COUNT 10.2 K/uL (4.1-10.2)
[2018-02-06 07:20] LABS: CHLORIDE 102 MEQ/L (99-109); CREATININE 0.5 MG/DL (0.6-1.3); GFR ESTIMATE (CALCULATED) > 59 mL/min/; POTASSIUM 3.5 MEQ/L (3.7-5.4); SODIUM 140 MEQ/L (136-147); UREA NITROGEN (BUN) 4 mg/dL (9-23)
[2018-02-06 07:27] LABS: GLUCOSE 86 mg/dL (70-99); MAGNESIUM 2.2 mg/dl (1.3-2.7)
[2018-02-06 08:36] VITALS: BP 174/71
[2018-02-06 10:53] VITALS: BP 171/88
[2018-02-06 16:05] VITALS: BP 164/79
[2018-02-06 19:42] VITALS: BP 155/83
[2018-02-07 00:03] VITALS: BP 160/73
[2018-02-07 04:18] VITALS: BP 162/70
[2018-02-07 08:26] VITALS: BP 149/86
[2018-02-07 08:29] VITALS: BP 158/71
[2018-02-07 08:55] LABS: CHLORIDE 102 MEQ/L (99-109); CREATININE 0.4 MG/DL (0.6-1.3); GFR ESTIMATE (CALCULATED) > 59 mL/min/; GLUCOSE 93 mg/dL (70-99); SODIUM 138 MEQ/L (136-147); UREA NITROGEN (BUN) 4 mg/dL (9-23)
[2018-02-07 08:59] LABS: POTASSIUM 4.5 MEQ/L (3.7-5.4)
== END 2018-02-07 13:30 | disposition home or self-care (01) | DRG 641 ==
LOC: EME 14:43 → EDOF 16:31 → 3EAST 16:38 → EDOF 16:38 → 3EAST 17:10
PROVIDERS: Hospitalist; Internal Medicine; Nurse Practitioner Family
DX: E87.6 Hypokalemia (principal); F10.239 Alcohol dependence with withdrawal, unspecified; T51.0X1A Toxic effect of ethanol, accidental (unintentional), initial encounter; D69.59 Other secondary thrombocytopenia; R55 Syncope and collapse; R03.0 Elevated blood-pressure reading, without diagnosis of hypertension; I45.81 Long QT syndrome; D64.9 Anemia, unspecified; L23.7 Allergic contact dermatitis due to plants, except food; F43.10 Post-traumatic stress disorder, unspecified; F32.9 Major depressive disorder, single episode, unspecified; F41.1 Generalized anxiety disorder; F17.200 Nicotine dependence, unspecified, uncomplicated; Z59.0 Homelessness; Z56.0 Unemployment, unspecified
CPT/HCPCS: 71046; 80048; 80048 91; 80053; 80076; 80306 90; 83735; 84100; 84132 91; 84484; 84702; 85025; 85027; 85610; 93005; 99281; 99285; G0480; J1100; J2060; J3411; J3475; J3480; J7030

== ENCOUNTER 2018-02-08 14:17 | Inpatient (IN) | payer OTHER ==
[~2018-02-08] VITALS: Ht 157.5 cm; Wt 65.4 kg
[~2018-02-08 14:17] MED LIST changes: +GABAPENTIN100 MG PO; +SEROQUEL200 MG PO
[2018-02-08 15:07] LABS: BASOPHIL (%) 0.5 % (0-1); EOSINOPHIL (%) 2.1 % (0-5); EOSINOPHIL COUNT 0.2 K/uL (0-0.3); HEMATOCRIT 35.2 % (36.0-46.0); HEMOGLOBIN 12.1 G/DL (11.9-15.5); IMMATURE GRANULOCYTE (%) 1.8 % (0.0-0.7); LYMPHOCYTE (%) 43.3 % (15-42); LYMPHOCYTE COUNT 3.6 K/uL (1.0-2.8); MCH 31.3 PG (29.0-34.0); MCHC 34.4 G/DL (30.0-36.0); MCV 91.2 FL (83-99); MONOCYTE (%) 8.1 % (3-12); MONOCYTE COUNT 0.7 K/uL (0-0.8); NEUTROPHIL (%) 44.2 % (45-76); NEUTROPHIL COUNT 3.7 K/uL (1.8-6.4); RBC DIS.WIDTH-CV 13.2 % (11.8-14.6); RBC DIS.WIDTH-SD 43.3 % (39-53); RED BLOOD COUNT 3.86 M/uL (3.80-5.20); WHITE BLOOD COUNT 8.3 K/uL (4.1-10.2)
[2018-02-08 15:08] LABS: PLATELET COUNT 218 K/uL (156-360)
[2018-02-08 15:15] LABS: POTASSIUM 3.8 mEq/L (3.7-5.4); SODIUM 142 mEq/L (136-147)
[2018-02-08 15:17] LABS: CHLORIDE 105 mEq/L (99-109); MAGNESIUM 1.9 mg/dL (1.3-2.7)
[2018-02-08 15:18] LABS: GLUCOSE 99 mg/dL (70-99); TOTAL PROTEIN 7.1 g/dL (6.4-8.3)
[2018-02-08 15:20] LABS: TOTAL BILIRUBIN 0.2 mg/dL (0.0-1.0)
[2018-02-08 15:21] LABS: ALKALINE PHOSPHATASE 57 IU/L (3-129); SERUM ETHYL ALCOHOL 307 mg/dL
[2018-02-08 15:22] LABS: CREATININE 0.6 mg/dL (0.6-1.3); GFR ESTIMATE (CALCULATED) > 59 mL/min/; PHOSPHORUS 5.8 mg/dL (2.5-4.9)
[2018-02-08 15:23] LABS: AST (GOT) 48 IU/L (2-34); UREA NITROGEN (BUN) 7 mg/dL (9-23)
[2018-02-08 15:25] LABS: ALT (GPT) 33 IU/L (3-49)
[2018-02-08 15:57] LABS: AMPHETAMINE NEGATIVE (500 ng/mL); BARBITURATES NEGATIVE (200 ng/mL); BENZODIAZEPINES PRESUMPTIVE POSITIVE (150 ng/mL); BUPRENORPHINE NEGATIVE (10 ng/mL); COCAINE NEGATIVE (150 ng/mL); METHADONE NEGATIVE (200 ng/mL); METHAMPHETAMINE NEGATIVE (500 ng/mL); OPIATES (MORPHINE) NEGATIVE (100 ng/mL); OXYCODONE NEGATIVE (100 ng/mL); PHENCYCLIDINE NEGATIVE (25 ng/mL); PROPOXYPHENE NEGATIVE (300 ng/mL); THC CANNABINOIDS NEGATIVE (50 ng/mL); TRICYCLIC ANTIDEPRESSANTS NEGATIVE (300 ng/mL)
[2018-02-08 16:27] LABS: BENZODIAZEPINES, URINE SCREEN POSITIVE (200 ng/mL)
[2018-02-09 01:49] VITALS: BP 137/86
[2018-02-09 07:46] VITALS: BP 154/85
[2018-02-09 16:02] VITALS: BP 158/91
[2018-02-09 19:16] VITALS: BP 158/75
[2018-02-10 09:10] VITALS: BP 131/72
[2018-02-10 09:22] VITALS: BP 128/76
[2018-02-10 11:42] VITALS: BP 173/89
[2018-02-10 15:08] VITALS: BP 142/83
[2018-02-10 16:41] VITALS: BP 142/86
[2018-02-10 18:32] VITALS: BP 142/67
[2018-02-11 07:33] VITALS: BP 107/54
[2018-02-11 15:14] VITALS: BP 115/73
[2018-02-11 16:19] VITALS: BP 127/83
[2018-02-11 19:04] VITALS: BP 126/76
[2018-02-11 22:38] VITALS: BP 122/69
[2018-02-12 08:05] VITALS: BP 101/63
[2018-02-12 16:24] VITALS: BP 118/69
[2018-02-12 21:29] VITALS: BP 125/71
[2018-02-13 08:11] VITALS: BP 95/47
[2018-02-13 16:27] VITALS: BP 119/61
[2018-02-14 08:06] VITALS: BP 110/54
[2018-02-14] MEDS ORDERED: Thiamine,Vitamin B1 PO (08:38)
[2018-02-14] MEDS ORDERED: NALTREXONE HCL50 MG PO (08:38)
[2018-02-14] MEDS ORDERED: PAXIL30 MG PO (08:38)
[2018-02-14] MEDS ORDERED: THERAGRAN1 TABLET PO (08:38)
[2018-02-14] MEDS ORDERED: TRAZODONE HCL100 MG PO (08:38)
[2018-02-14] MEDS ORDERED: GABAPENTIN300 MG PO (08:38)
[2018-02-14] MEDS ORDERED: DOCUSATE SODIU100 MG PO (08:38)
[2018-02-14] MEDS ORDERED: SEROQUEL100 MG PO (08:38)
== END 2018-02-14 12:06 | disposition home or self-care (01) | DRG 885 ==
LOC: EME 14:17 → EDOF 02-09 00:35 → 1WEST 02-09 00:35 → ENRESERV 02-09 01:34 → 1WEST 02-09 01:41
PROVIDERS: Emergency Medicine
DX: F33.1 Major depressive disorder, recurrent, moderate (principal); F10.220 Alcohol dependence with intoxication, uncomplicated; Y90.8 Blood alcohol level of 240 mg/100 ml or more; F43.23 Adjustment disorder with mixed anxiety and depressed mood; R45.851 Suicidal ideations; Z59.0 Homelessness; F10.239 Alcohol dependence with withdrawal, unspecified; F17.200 Nicotine dependence, unspecified, uncomplicated; Z81.8 Family history of other mental and behavioral disorders
CPT/HCPCS: 80053; 83735; 84100; 84999; 85025; 90839; 97150 GO; 97165 GO; 99281; 99285; G0480; J2060; J7030; Q0177